=== PATIENT | female | born 1980 ===

== ENCOUNTER 2016-09-01 21:04 | Inpatient (IN) | payer MEDICAID ==
[2016-09-01 21:12] VITALS: BMI 44.9
[2016-09-01] MEDS ORDERED: Sodium Chloride 0.9% 1,000 ML IV STA (21:22)
--- NOTE | 2016-09-01 21:26 | ED PDOC ---
Arrival/HPI - General Chief Complaint: Back Pain Time Seen by Provider: 09/01/16 21:15 Historian: Patient - History of Present Illness Narrative History of Present Illness (Text): 09/01/16 21:20 A 36 year old female, whose past medical history includes cholelithiasis (1 small gallstone), presents to the emergency department complaining of back pain that developed about 5 hours ago. Patient states it is an aching pain that radiates from the right flank to the right upper abdominal quarant. Pain is not exacerbated by movement. Patient reports similar pain that developed about 3 weeks ago after eating greasy foods. At that time pain was relieved with 2 600 mg Tylenol. Patient notes some chills earlier today, but denies any hematuria, other urinary changes, fever, nausea, vomiting, numbness to the leg, vaginal bleeding, vaginal discharge, or any other complaints at this time. Last menstrual cycle was 3 weeks ago. PMD: [facility] Time/Duration: 4-6 hours Symptom Onset: Sudden Symptom Course: Unchanged Quality: Aching Activities at Onset: Rest Modifying Factors (Text): not exacerbated with movement Context: Home Associated Symptoms (Text): chills Past Medical History - Provider Review Nursing Documentation Reviewed: Yes - Infectious Disease Hx of Infectious Diseases: None - Tetanus Immunization Tetanus Immunization: Unknown - Past Medical History Past Medical History: No Previous - Pulmonary Hx Asthma: Yes - Gastrointestinal Hx Gall Bladder Disease: Yes (gallstones) - Genitourinary/Gynecological Other/Comment: Ovarian cyst - Psychiatric Hx Psychophysiologic Disorder: No Hx Anxiety: No Hx Bipolar Disorder: No Hx Depression: No Hx Emotional Abuse: No Hx Hallucinations: No Hx Panic Disorder: No Hx Post Traumatic Stress Disorder: No Hx Psychosis: No Hx Physical Abuse: No Hx Schizophrenia: No Hx Sexual Abuse: No Hx Substance Use: No - Past Surgical History Past Surgical History: No Previous - Anesthesia Hx Anesthesia: No Hx Anesthesia Reactions: No Hx Malignant Hyperthermia: No - Suicidal Assessment Feels Threatened In Home Enviroment: No Family/Social History - Physician Review Nursing Documentation Reviewed: Yes Family/Social History: No Known Family HX Smoking Status: Never Smoked Hx Alcohol Use: No Hx Substance Use: No Hx Substance Use Treatment: No Allergies/Home Meds Allergies/Adverse Reactions: Allergies No Known Allergies Allergy (Verified 06/29/16 08:38) Review of Systems - Physician Review All systems were reviewed & negative as marked: Yes - Review of Systems Constitutional: Other (chills). absent: Fevers Gastrointestinal: Abdominal Pain. absent: Nausea, Vomiting Genitourinary Female: absent: Dysuria, Frequency, Hematuria, Urine Output Changes, Vaginal Bleeding, Vaginal Discharge Musculoskeletal: Back Pain Physical Exam Vital Signs Reviewed: Yes Vital Signs Temp Pulse Resp BP Pulse Ox 09/01/16 22:50 98.9 F 82 16 98 09/01/16 21:06 98.8 F 85 18 122/68 94 L Temperature: Afebrile Blood Pressure: Normal Pulse: Regular Respiratory Rate: Normal Appearance: Positive for: Well-Appearing, Non-Toxic, Comfortable Pain Distress: None Mental Status: Positive for: Alert and Oriented X 3 - Systems Exam Head: Present: Atraumatic, Normocephalic Pupils: Present: PERRL Extroacular Muscles: Present: EOMI Conjunctiva: Present: Normal Mouth: Present: Moist Mucous Membranes Neck: Present: Normal Range of Motion Respiratory/Chest: Present: Clear to Auscultation, Good Air Exchange. No: Respiratory Distress, Accessory Muscle Use Cardiovascular: Present: Regular Rate and Rhythm, Normal S1, S2. No: Murmurs Abdomen: Present: Tenderness (right upper quadrant tenderness with palpation), Normal Bowel Sounds, Guarding, Other (positive dominguez's sign). No: Distention, Peritoneal Signs, Rebound Back: No: CVA Tenderness Upper Extremity: Present: Normal Inspection. No: Cyanosis, Edema Lower Extremity: Present: Normal Inspection. No: Edema Neurological: Present: GCS=15, CN II-XII Intact, Speech Normal Skin: Present: Warm, Dry, Normal Color. No: Rashes Psychiatric: Present: Alert, Oriented x 3, Normal Insight, Normal Concentration Medical Decision Making ED Course and Treatment: 09/01/16 21:39 Impression: 36 year old female with right flank pain radiating to the right upper quadrant. Differential Diagnosis included but are not limited to: cholecystitis vs. nephrolithiasis vs. gastritis vs. biliary colic Plan: -- US abdomen -- Labs -- Pepcid, Toradol, IV Fluids -- Reassess and disposition - Lab Interpretations I have reviewed the lab results: Yes - Medication Orders Current Medication Orders: Discontinued Medications Famotidine (Pepcid) 20 mg IVP STAT STA Stop: 09/01/16 21:23 Last Admin: 09/01/16 21:41 Dose: 20 MG IVP Administration Document 09/01/16 21:41 [email or web address] (Rec: 09/01/16 21:[id number]- [id number]) Charges for Administration # of IVP Administrations 1 Sodium Chloride (Sodium Chloride 0.9%) 1,000 mls @ 1,000 mls/hr IV .Q1H STA Stop: 09/01/16 22:21 Last Admin: 09/01/16 21:42 Dose: 1,000 MLS/HR eMAR Start Stop Document 09/01/16 21:42 [email or web address] (Rec: 09/01/16 21:[id number]- [id number]) Intravenous Solution Start Date 09/01/16 Start Time 21:42 End Date 09/01/16 Ketorolac Tromethamine (Toradol) 30 mg IVP STAT STA Stop: 09/01/16 21:23 Last Admin: 09/01/16 21:42 Dose: 30 MG IVP Administration Document 09/01/16 21:42 CAST (Rec: 09/01/16 21:42 [place] [id number]) Charges for Administration # of IVP Administrations 1 Morphine Sulfate (Morphine) 4 mg IVP STAT STA Stop: 09/01/16 23:00 Last Admin: 09/01/16 23:25 Dose: 4 MG MAR Pain Assessment Document 09/01/16 23:25 [email or web address] (Rec: 09/01/16 23:[id number]- [id number]) Pain Reassessment Is this a pain reassessment? No Sleep Is patient sleeping during reassessment? No Presence of Pain Presence of Pain Yes Pain Scale Used Pain Scale Used Numeric Location Pain Location Body Site Abdomen Description Description Constant Intensity of Pain at present 8 Pain Behavior Facial Grimacing Aggravating Factors Changing Position Alleviating Factors/Management Position Change Techniques Alleviating Factors Medication IVP Administration Document 09/01/16 23:25 [email or web address] (Rec: 09/01/16 23:[id number]- [id number]) Charges for Administration # of IVP Administrations 1 ED OBSERVATION Date of observation admission: 09/01/16 Time of observation admission: 21:20 - Observation admission statement Patient is being placed in observation because:: right flank and right upper quadrant pain - Goals of Observation Goals of observation are:: pain control and obtain series of abdominal examinations - Progress Note Progress Note: 09/01/16 23:28 Case discussed with the oral and maxillofacial surgery resident Dr. Dobbins who will come and see patient. I discussed the case with Dr. Covarrubias, Surgeon who states that she will admit her and evaluate. She will order any antibiotics if needed. Discussed case with Dr. Blankenship who will place under his service. - Scribe Statement The provider has reviewed the documentation as recorded by the Alfredo [facility] All medical record entries made by the Alfredo were at my direction and personally dictated by me. I have reviewed the chart and agree that the record accurately reflects my personal performance of the history, physical exam, medical decision making, and the department course for this patient. I have also personally directed, reviewed, and agree with the discharge instructions and disposition. Disposition/Present on Arrival - Present on Arrival Any Indicators Present on Arrival: No History of DVT/PE: No History of Uncontrolled Diabetes: No Urinary Catheter: No History of Decub. Ulcer: No History Surgical Site Infection Following: None - Disposition Have Diagnosis and Disposition been Completed?: Yes Diagnosis: Biliary colic Disposition: HOSPITALIZED Disposition Time: 23:30 Patient Plan: Observation Condition: FAIR
[2016-09-01 21:49] LABS: ADD MANUAL DIFF? NO
[2016-09-01 21:58] LABS: BASO # 0.03 K/mm3 (0.0-2.0); BASO % 0.2 % (0.0-3.0); EOS # 0.2 (0.0-0.7); EOS % 1.8 % (1.5-5.0); GRAN # 8.63 (1.4-6.5); HEMATOCRIT 34.9 % (36.0-48.0); LYMPH # 3.4 (1.2-3.4); MEAN CELL VOLUME 83.1 fL (80.0-105.0); MEAN CORPUSCULAR HEMOGLOBIN 27.1 pg (25.0-35.0); MEAN CORPUSCULAR HGB CONC 32.7 g/dl (31.0-37.0); MEAN PLATELET VOLUME 9.3 fl (7.0-11.0); MONO # 0.6 (0.1-0.6); PLATELET COUNT 368 10^3/uL (120.0-450.0); RED CELL DISTRIBUTION WIDTH 14.9 % (11.5-14.5); WHITE BLOOD COUNT 12.9 10^3/ul (4.5-11.0)
[2016-09-01 22:08] LABS: INR 0.94 (0.93-1.08); PARTIAL THROMBOPLASTIN TIME 27.6 Seconds (23.7-30.8)
[2016-09-01 22:19] LABS: ALB/GLOB RATIO 1.1 (1.1-1.8); ALKALINE PHOSPHATASE 77 U/L (38-133); ALT/SGPT 28 U/L (7-56); AST/SGOT 21 U/L (15-39); BILIRUBIN,TOTAL 0.4 mg/dL (0.2-1.3); BLOOD UREA NITROGEN 10 mg/dL (7-21); CALCIUM 8.9 mg/dL (8.4-10.5); CARBON DIOXIDE 23 mmol/L (21-33); CHLORIDE 103 mmol/L (98-107); GFR AFRICAN-AMERICAN > 60; GLUCOSE,RANDOM 99 mg/dL (70-110); LIPASE 99 U/L (23-300); POTASSIUM 3.7 mmol/L (3.6-5.0); SODIUM 136 mmol/L (132-148); TOTAL PROTEIN 7.8 g/dL (5.8-8.3)
[2016-09-01] MEDS ORDERED: Morphine 4 mg/ml ISec IVP STA (22:59)
--- NOTE | 2016-09-01 23:11 | US ---
EXAM: US Abdomen Complete CLINICAL HISTORY: 36 years old, female; Pain; Abdominal pain; Other: Ruq; Additional info: Ruq abd pain R/O cholecytsitits R/O kidney stone TECHNIQUE: Real-time ultrasound of the abdomen (complete) with image documentation. COMPARISON: US - ABDOMEN COMPLETE 12/13/2015 6:31:13 PM FINDINGS: Liver: Liver is enlarged measuring 19.2 CM craniocaudal. Liver demonstrates normal echogenicity. No focal liver lesions identified. Gallbladder: The gallbladder demonstrates a shadowing gallstone at the gallbladder neck measuring at least 2.4 CM which is nonmobile. No wall thickening or pericholecystic fluid. Sonographic Diaz's sign is negative. Common bile duct: Common bile duct is normal in caliber measuring 0.5 CM. No stones. No dilation. Pancreas: The pancreas is normal. Kidneys: The right kidney is normal. The left kidney is normal. No stones. No hydronephrosis. Spleen: The spleen is normal. Aorta: Unremarkable. No aneurysm. Inferior vena cava: Unremarkable. IMPRESSION: 1. Liver is enlarged measuring 19.2 CM craniocaudal. 2. The gallbladder demonstrates a shadowing gallstone at the gallbladder neck measuring at least 2.4 CM which is nonmobile. No wall thickening or pericholecystic fluid. Sonographic Diaz's sign is negative.
--- NOTE | 2016-09-02 00:09 | CP.PCM.CON ---
History of Present Illness - History of Present Illness History of Present Illness: Surgery Consult: Dr. Covarrubias Pt is a 36F with no significant PMHx who presents to [facility] for complaints of abdominal pain. Pt states she started having dull, RUQ abdominal pain this afternoon with radiation to the back. According to the pt, she has had similar episodes in the past and was told she has stones in her gallbladder. Pt states this is her 4th attack and she has been told to f/u with a surgeon to remove her GB but hasn't had a chance. She denies any associated symptoms with this episode. Denies N/V, fevers. Admits to chills. In the ER, pt had an US of the RUQ which shows GB with large stone impacted in the neck of the GB. No GB wall thickening or percholicystic fluid. Surgery consulted to evaluate. Currently, pt is resting comfortably in bed and states her pain has improved since getting morphine. Denies N/V, F/C, chest pain or SOB. PMHx: denies PSHx: denies SocialHx: former smoker, denies EtOH/drugs NKDA Review of Systems - Review of Systems All systems: reviewed and no additional remarkable complaints except (as per HPI ) Past Patient History - Infectious Disease Hx of Infectious Diseases: None - Tetanus Immunizations Tetanus Immunization: Unknown - Past Social History Smoking Status: Former Smoker - GASTROINTESTINAL Hx Gall Bladder Disease: Yes (gallstones) - GENITOURINARY/GYNECOLOGICAL Other/Comment: Ovarian cyst - PSYCHIATRIC Hx Psychophysiologic Disorder: No Hx Anxiety: No Hx Bipolar Disorder: No Hx Depression: No Hx Emotional Abuse: No Hx Hallucinations: No Hx Panic Symptoms: No Hx Post Traumatic Stress Disorder: No Hx Psychosis: No Hx Physical Abuse: No Hx Schizophrenia: No Hx Sexual Abuse: No Hx Substance Use: No - SURGICAL HISTORY Hx Surgeries: No - ANESTHESIA Hx Anesthesia: No Hx Anesthesia Reactions: No Hx Malignant Hyperthermia: No Meds Allergies/Adverse Reactions: Allergies Allergy/AdvReac Type Severity Reaction Status Date / Time No Known Allergies Allergy Verified 06/29/16 08:38 - Medications Medications: Current Medications Ciprofloxacin (Cipro 400mg/200ml Dsw) 200 mls @ 133.3 mls/hr IVPB Q12 KRISTINE PRN Reason: Protocol Stop: 09/03/16 01:31 Metronidazole (Flagyl) 100 mls @ 100 mls/hr IVPB Q8 KRISTINE PRN Reason: Protocol Sodium Chloride (Sodium Chloride 0.9%) 1,000 mls @ 125 mls/hr IV .Q8H KRISTINE Morphine Sulfate (Morphine) 2 mg IVP Q4H PRN PRN Reason: Pain, moderate (4-7) Ondansetron HCl (Zofran Inj) 4 mg IVP Q4H PRN PRN Reason: Nausea/Vomiting Physical Exam - Constitutional Appears: Well, No Acute Distress - Head Exam Head Exam: ATRAUMATIC, NORMOCEPHALIC - Eye Exam Eye Exam: Normal appearance - ENT Exam ENT Exam: Mucous Membranes Moist - Respiratory Exam Respiratory Exam: NORMAL BREATHING PATTERN - Cardiovascular Exam Cardiovascular Exam: RRR - GI/Abdominal Exam GI & Abdominal Exam: Soft. absent: Distended, Guarding, Rebound, Tenderness - Extremities Exam Extremities exam: Negative for: tenderness - Neurological Exam Neurological exam: Alert, Oriented x3 - Skin Skin Exam: Dry, Intact, Warm Results - Vital Signs Recent Vital Signs: Last Vital Signs Temp 98.9 F 09/01/16 22:50 Pulse 82 09/01/16 22:50 Resp 16 09/01/16 22:50 BP 122/68 09/01/16 21:06 Pulse Ox 98 09/01/16 22:50 - Labs Result Diagrams: 09/01/16 21:34 09/01/16 21:34 Labs: Laboratory Results - last 24 hr 09/01/16 21:34 WBC 12.9 H D RBC 4.20 Hgb 11.4 L Hct 34.9 L MCV 83.1 MCH 27.1 MCHC 32.7 RDW 14.9 H Plt Count 368 MPV 9.3 Gran % 67.0 Lymph % (Auto) 26.0 [place] % (Auto) 5.0 Eos % (Auto) 1.8 Baso % (Auto) 0.2 Gran # 8.63 H Lymph # 3.4 [place] # 0.6 Eos # 0.2 Baso # 0.03 PT 10.1 INR 0.94 APTT 27.6 Sodium 136 Potassium 3.7 Chloride 103 Carbon Dioxide 23 Anion Gap 14 BUN 10 Creatinine 0.7 Est GFR ( Amer) > 60 Est GFR (Non-Af Amer) > 60 Random Glucose 99 Calcium 8.9 Total Bilirubin 0.4 AST 21 ALT 28 Alkaline Phosphatase 77 Total Protein 7.8 Albumin 4.0 Globulin 3.8 Albumin/Globulin Ratio 1.1 Lipase 99 - Imaging and Cardiology US - abdomen Status: Image reviewed by me, Report reviewed by me Assessment & Plan - Assessment and Plan (Free Text) Assessment: 36F with biliary colic & symptomatic cholelithiasis Plan: - NPO - IVF, IV ABX, pain management - plan for lap hemant - d/w Dr. Satish Dobbins, PGY-2 Surgery
[2016-09-02] MEDS: metroNIDAZOLE IV 500 mg/100 ml 100 ML IVPB SCH ×4 (00:17→21:44)
[2016-09-02] MEDS: Sodium Chloride 0.9% 1,000 ML IV SCH ×4 (00:18→21:46)
--- NOTE | 2016-09-02 00:51 | CP.PCM.HP ---
<Magdalena Grey - Last Filed: 09/02/16 00:58> History of Present Illness - History of Present Illness History of Present Illness: 36 F with PMHx of asthma and ruptured ovarian cyst presents [place] [facility] with complaints of rt sided flank pain. Pt states that the pain began approx at 4pm and has remained constant. The pain radiates from the rt flank toward the RUQ and is rated at a 9/10 at its worst and is described as sharp in nature. Pt was moving boxes when she felt the pain, took tylenol with minimal relief and decided to come to the ED. Pt has had similar episodes in the past, a total of 4 times, however it is progressively worsening. Pt admitted to rt flank pain, ruq abdominal pain, chills and nausea. Pt denied fever, sob, lightheadedness, chest pains, palpitations, v/d/c/, hematuria, or any urinary symptoms. PMHx: rutpured ovarian cyst, asthma PSHx: Denies SHx: Denies tobacco, etoh, or illicit drug use. Lives in [place] with family, LMP: 3 weeks ago - heavy with clots FamHx: Mom:HTN Meds: OCP Allergies: NKDA PMD: [facility] Present on Admission - Present on Admission Any Indicators Present on Admission: No History of DVT/PE: No History of Uncontrolled Diabetes: No Urinary Catheter: No Decubitus Ulcer Present: No Review of Systems - Review of Systems Review of Systems: as per HPI otherwise negative Past Patient History - Infectious Disease Hx of Infectious Diseases: None - Tetanus Immunizations Tetanus Immunization: Unknown - Past Social History Smoking Status: Former Smoker - PULMONARY Hx Asthma: Yes - GASTROINTESTINAL Hx Gall Bladder Disease: Yes (gallstones) - GENITOURINARY/GYNECOLOGICAL Other/Comment: Ovarian cyst - PSYCHIATRIC Hx Psychophysiologic Disorder: No Hx Anxiety: No Hx Bipolar Disorder: No Hx Depression: No Hx Emotional Abuse: No Hx Hallucinations: No Hx Panic Symptoms: No Hx Post Traumatic Stress Disorder: No Hx Psychosis: No Hx Physical Abuse: No Hx Schizophrenia: No Hx Sexual Abuse: No Hx Substance Use: No - SURGICAL HISTORY Hx Surgeries: No - ANESTHESIA Hx Anesthesia: No Hx Anesthesia Reactions: No Hx Malignant Hyperthermia: No Meds Allergies/Adverse Reactions: Allergies Allergy/AdvReac Type Severity Reaction Status Date / Time No Known Allergies Allergy Verified 06/29/16 08:38 Physical Exam - Constitutional Appears: Well, Non-toxic, No Acute Distress - Head Exam Head Exam: ATRAUMATIC, NORMAL INSPECTION, NORMOCEPHALIC - Eye Exam Eye Exam: EOMI, Normal appearance, PERRL Pupil Exam: NORMAL ACCOMODATION, PERRL - ENT Exam ENT Exam: Mucous Membranes Moist, Normal Exam - Neck Exam Neck exam: Positive for: Full Rom, Normal Inspection - Respiratory Exam Respiratory Exam: Clear to Auscultation Bilateral, NORMAL BREATHING PATTERN - Cardiovascular Exam Cardiovascular Exam: REGULAR RHYTHM, +S1, +S2 - GI/Abdominal Exam GI & Abdominal Exam: Normal Bowel Sounds, Soft, Tenderness (RUQ) - Extremities Exam Extremities exam: Positive for: normal inspection - Back Exam Back exam: CVA tenderness (R) - Neurological Exam Neurological exam: Alert, CN II-XII Intact, Normal Gait, Oriented x3, Reflexes Normal - Psychiatric Exam Psychiatric exam: Normal Affect, Normal Mood - Skin Skin Exam: Dry, Intact, Normal Color, Warm Results - Vital Signs Recent Vital Signs: Last Vital Signs Temp 98.9 F 09/01/16 22:50 Pulse 82 09/01/16 22:50 Resp 16 09/02/16 00:18 BP 122/68 09/01/16 21:06 Pulse Ox 98 09/02/16 00:18 - Labs Result Diagrams: 09/01/16 21:34 09/01/16 21:34 Labs: Laboratory Results - last 24 hr 09/01/16 21:34 WBC 12.9 H D RBC 4.20 Hgb 11.4 L Hct 34.9 L MCV 83.1 MCH 27.1 MCHC 32.7 RDW 14.9 H Plt Count 368 MPV 9.3 Gran % 67.0 Lymph % (Auto) 26.0 [place] % (Auto) 5.0 Eos % (Auto) 1.8 Baso % (Auto) 0.2 Gran # 8.63 H Lymph # 3.4 [place] # 0.6 Eos # 0.2 Baso # 0.03 PT 10.1 INR 0.94 APTT 27.6 Sodium 136 Potassium 3.7 Chloride 103 Carbon Dioxide 23 Anion Gap 14 BUN 10 Creatinine 0.7 Est GFR ( Amer) > 60 Est GFR (Non-Af Amer) > 60 Random Glucose 99 Calcium 8.9 Total Bilirubin 0.4 AST 21 ALT 28 Alkaline Phosphatase 77 Total Protein 7.8 Albumin 4.0 Globulin 3.8 Albumin/Globulin Ratio 1.1 Lipase 99 Assessment & Plan - Assessment and Plan (Free Text) Assessment: 36 obese F with no significant PMHx presenting with complaints of biliary colic x 4 episodes was previously told to f/u with surgeon to have GB removed. Biliary colic - Abd US demonstrated 2.4 cm gallstone in neck of GB with no gallbladder wall thickening or pericholecystic fluid - LFTs wnl - Surgery consulted, Dr. Covarrubias - Possible Lap cholecystectomy tomorrow - NPO - IVF: NS @125ml/hr - Cipro Flagyl - Morphine 2mg q4 - Zofran Leukocytosis - WBC 12.9 - afebrile - f/u CBC - Abx: Cipro/flagyl - IVF: NS @ 125ml/hr Anemia - Hgb 11.4 - fu CBC - asymptomatic GI ppx DVT ppx Seen, reviewed and discussed with attending <Pattie HUNG,Gualberto - Last Filed: 09/07/16 09:34> Results - Vital Signs Recent Vital Signs: Last Vital Signs Temp 97.7 F 09/04/16 08:00 Pulse 72 09/04/16 08:00 Resp 18 09/04/16 08:00 BP 103/54 L 09/04/16 08:00 Pulse Ox 95 09/04/16 08:00 - Labs Result Diagrams: 09/04/16 08:15 09/04/16 08:15 Attending/Attestation - Attestation I have personally seen and examined this patient.: Yes I have fully participated in the care of the patient.: Yes I have reviewed all pertinent clinical information: Yes
[2016-09-02] MEDS: Ciprofloxacin 400mg/200ml D5W 200 ML IVPB SCH ×2 (01:56→22:01)
[2016-09-02] MEDS: Morphine 2 mg/ml ISec IVP PRN ×3 (05:21→13:49)
[2016-09-02 08:10] LABS: HEMATOCRIT 32.4 % (36.0-48.0); MEAN CELL VOLUME 82.9 fL (80.0-105.0); MEAN CORPUSCULAR HEMOGLOBIN 26.3 pg (25.0-35.0); MEAN CORPUSCULAR HGB CONC 31.8 g/dl (31.0-37.0); MEAN PLATELET VOLUME 9.1 fl (7.0-11.0); RED CELL DISTRIBUTION WIDTH 15.1 % (11.5-14.5); WHITE BLOOD COUNT 7.7 10^3/ul (4.5-11.0)
[2016-09-02] MEDS ORDERED: cefTRIAXone 1 gm 100 ML IVPB SCH (10:00)
[2016-09-02 17:22] LABS: URINE BILIRUBIN NEGATIVE (NEGATIVE); URINE BLOOD NEGATIVE (NEGATIVE); URINE GLUCOSE (UA) NEGATIVE (NEGATIVE); URINE KETONE TRACE mg/dL (NEGATIVE); URINE LEUKOCYTE ESTERASE NEGATIVE Leu/uL (NEGATIVE); URINE PROTEIN NEGATIVE mg/dL (<30 mg/dL); URINE UROBILINOGEN 0.2 E.U./dL (<1 E.U./dL)
[2016-09-02 17:24] LABS: URINE APPEARANCE CLEAR (CLEAR); URINE COLOR YELLOW (YELLOW)
[2016-09-02] MEDS ORDERED: Succinylcholine 200 mg/10 ml Inj IV ONE (18:28)
[2016-09-02] MEDS ORDERED: Rocuronium 10 mg/ml (5 ml) ONE (18:28)
[2016-09-02] MEDS ORDERED: Lidocaine 1% Inj (20ml) ONE (18:28)
[2016-09-02] MEDS ORDERED: Propofol 10 mg/ml Inj (20 ML) ONE (18:28)
[2016-09-02] MEDS ORDERED: Midazolam 2 MG/2 ML VIAL ONE (18:28)
[2016-09-02] MEDS ORDERED: Desflurane Inhalation Anesthetic Liq (240 ml) ONE (18:42)
[2016-09-02] MEDS ORDERED: Neostigmine Methylsulfate 3mg/3ml Syringe IV ONE (19:03)
[2016-09-02] MEDS ORDERED: HYDROmorphone 0.5 mg/0.5 ml ISec IVP PRN (19:49)
--- NOTE | 2016-09-02 19:50 | PCM.SURG1 ---
Surgeon's Initial Post Op Note - Surgeon's Notes Surgeon: Satish Field Scout: Sandhya Pre-Operative Diagnosis: Biliary colic Operative Findings: gallstone Post-Operative Diagnosis: Biliary colic Operation Performed: Laparoscopic Cholecystectomy Specimen/Specimens Removed: Gallbladder Estimated Blood Loss: EBL {In ML}: 10 Date of Surgery/Procedure: 09/02/16 Time of Surgery/Procedure: 19:00
[2016-09-02] MEDS ORDERED: Lactated Ringer's 1,000 ML IV SCH (20:00)
[2016-09-02] MEDS ORDERED: HYDROmorphone 0.5 mg/0.5 ml ISec ONE ×2 (20:06→20:26)
--- NOTE | 2016-09-02 20:18 | OP ---
PROCEDURE DATE: 09/02/2016 SURGEON: Dr. Covarrubias. FUEL CELL BATTERY TECHNICIAN: Dr. Arthur. ANESTHESIA: General, Dr. Meyers. PREOPERATIVE DIAGNOSIS: Cholelithiasis. POSTOPERATIVE DIAGNOSIS: Cholelithiasis. PROCEDURE: Laparoscopic cholecystectomy. DESCRIPTION OF OPERATION: With the patient in the supine position under adequate general anesthesia, the abdomen was prepped and draped in the usual sterile manner. Veress needle puncture was performe d at the umbilicus with insufflation to 15 cm water pressure of CO2 and a 10 mm laparoscopic trocar w as inserted via an infraumbilical incision. Under direct vision, additional trocars were inserted in the epigastrium and right costal margin. The gallbladder was visualized. It was not acutely inflam ed. The fundus was grasped and elevated. The infundibulum was grasped just above a stone and retrac nikko laterally. Adhesions were cleared allowing visualization of the cystic duct. The cystic duct wa s cleared down toward the junction with the common bile duct and viewed anteriorly and posteriorly. The cystic duct was then triply clipped and divided. Anterior and posterior branches of the cystic a rtery were identified, each was triply clipped and divided. The gallbladder was dissected free of th e liver bed using electrocautery. There was mild edema of the liver bed consistent with recent infla mmation. The gallbladder was placed in a specimen retrieval bag and removed via the umbilical port s ite. The right upper quadrant was irrigated and suctioned. Pneumoperitoneum was released and the tr ocars were removed. The umbilical port site was closed with a [id number] fascial suture of 0 Vi cryl. All incisions were closed with 4-0 Monocryl subcuticular sutures and Steri-Strips. Dry steril e dressings were applied. The patient tolerated the procedure well and transferred to recovery room in stable condition. Estimated blood loss for the procedure was 10 mL. Fausto Covarrubias MD cc: 58 TT: 09/02/2016 20:17:48 [email or web address]
[2016-09-03] MEDS: Morphine 2 mg/ml ISec IVP PRN ×2 (01:07→05:25)
[2016-09-03] MEDS: metroNIDAZOLE IV 500 mg/100 ml 100 ML IVPB SCH (05:20)
[2016-09-03 08:02] LABS: ALKALINE PHOSPHATASE 67 U/L (38-133); ALT/SGPT 50 U/L (7-56); AST/SGOT 46 U/L (15-39); BILIRUBIN,TOTAL 0.6 mg/dL (0.2-1.3); CALCIUM 8.3 mg/dL (8.4-10.5); CARBON DIOXIDE 26 mmol/L (21-33); CHLORIDE 103 mmol/L (98-107); GFR AFRICAN-AMERICAN > 60; GLUCOSE,RANDOM 91 mg/dL (70-110); SODIUM 137 mmol/L (132-148); TOTAL PROTEIN 7.2 g/dL (5.8-8.3)
[2016-09-03 08:18] LABS: BLOOD UREA NITROGEN 5 mg/dL (7-21)
[2016-09-03] MEDS ORDERED: Morphine 4 mg/ml ISec IVP PRN (09:27)
[2016-09-03] MEDS: Sodium Chloride 0.9% 1,000 ML IV SCH (09:48)
--- NOTE | 2016-09-03 13:15 | CP.PCM.PN ---
<Shamika Figueroa - Last Filed: 09/03/16 16:31> Subjective - Date & Time of Evaluation Date of Evaluation: 09/03/16 Time of Evaluation: 11:00 - Subjective Subjective: Hospitalist progress note for Dr. Savana Goodman Patient seen and examined at bedside. Patient had a lap cholecystectomy yesterday and complains of RUQ pain, which she describes as a 7/10 in severity, headache, right sided mid-back pain and sore throat. Denies fever, chills, N/V/D /C, and flatus. Is tolerating regular diet. States that she would like to stay for another day until her pain is improved. Objective - Vital Signs/Intake and Output Vital Signs (last 24 hours): Temp Pulse Resp BP Pulse Ox 98 F 87 18 113/73 95 09/03/16 08:51 09/03/16 08:51 09/03/16 08:51 09/03/16 08:51 09/03/16 08:51 Intake and Output: 09/03/16 09/03/16 06:59 18:59 Intake Total 75 120 Balance 75 120 - Medications Medications: Current Medications Ondansetron HCl (Zofran Inj) 4 mg IVP Q4H PRN PRN Reason: Nausea/Vomiting Last Admin: 09/02/16 23:17 Dose: 4 mg Oxycodone/Acetaminophen (Percocet 5/325 Mg Tab) 2 tab PO Q4H PRN PRN Reason: Pain, moderate (4-7) Stop: 09/06/16 12:43 Pantoprazole Sodium (Protonix Inj) 40 mg IVP DAILY KRISTINE Last Admin: 09/03/16 09:44 Dose: 40 mg - Labs Labs: 09/03/16 07:30 PT 10.1 Seconds (9.9-11.8) 09/01/16 21:34 INR 0.94 (0.93-1.08) 09/01/16 21:34 APTT 27.6 Seconds (23.7-30.8) 09/01/16 21:34 - Constitutional Appears: Well, Non-toxic - Head Exam Head Exam: ATRAUMATIC, NORMOCEPHALIC - ENT Exam ENT Exam: Mucous Membranes Moist - Respiratory Exam Respiratory Exam: Clear to Ausculation Bilateral, NORMAL BREATHING PATTERN. absent: Accessory Muscle Use, Respiratory Distress - Cardiovascular Exam Cardiovascular Exam: REGULAR RHYTHM, +S1, +S2 - GI/Abdominal Exam GI & Abdominal Exam: Soft, Tenderness, Normal Bowel Sounds. absent: Distended Additional comments: RUQ tenderness, three surgical incisions, well-appoximated with derma-gordon. No signs of erythema or active bleeding. - Extremities Exam Extremities Exam: Pedal Edema. absent: Calf Tenderness, Tenderness - Neurological Exam Neurological Exam: Alert, Awake, Oriented x3 - Psychiatric Exam Psychiatric exam: Normal Affect, Normal Mood - Skin Skin Exam: Dry, Normal Color, Warm Assessment and Plan - Assessment and Plan (Free Text) Assessment: 36 obese F with no significant PMHx presenting with complaints of biliary colic x 4 episodes was previously told to f/u with surgeon to have GB removed. Biliary colic - Abd US demonstrated 2.4 cm gallstone in neck of GB with no gallbladder wall thickening or pericholecystic fluid - S/P lap hemant yesterday by Dr. Covarrubias - AST mildly elevated - Continued severe pain, no nausea, no vomiting Plan - Surgery consulted, Dr. Covarrubias--appreciate recs - HHD - D/C fluids - D/C Cipro Flagyl - Increase morphine 4mg IV Q4 - Zofran - Abdominal binder - Incentive spirometer Leukocytosis - Resolved today - afebrile - f/u CBC - D/C cipro, flagyl Anemia - Hgb 11.4-->10.2 - Continue to trend - asymptomatic GI ppx DVT ppx--SCD Dispo: Continue admit on med surgery floor overnight, possible discharge tomorrow Seen, reviewed and discussed with Dr. Savana Figueroa, PGY1 <Savana Goodman B - Last Filed: 09/03/16 18:01> Objective - Vital Signs/Intake and Output Vital Signs (last 24 hours): Temp Pulse Resp BP Pulse Ox 97.6 F 79 20 125/69 98 09/03/16 16:00 09/03/16 16:00 09/03/16 16:00 09/03/16 16:00 09/03/16 16:00 Intake and Output: 09/03/16 09/03/16 06:59 18:59 Intake Total 75 600 Balance 75 600 - Medications Medications: Current Medications Ondansetron HCl (Zofran Inj) 4 mg IVP Q4H PRN PRN Reason: Nausea/Vomiting Last Admin: 09/02/16 23:17 Dose: 4 mg Oxycodone/Acetaminophen (Percocet 5/325 Mg Tab) 2 tab PO Q4H PRN PRN Reason: Pain, moderate (4-7) Stop: 09/06/16 12:43 Last Admin: 09/03/16 14:01 Dose: 2 tab Pantoprazole Sodium (Protonix Inj) 40 mg IVP DAILY KRISTINE Last Admin: 09/03/16 09:44 Dose: 40 mg - Labs Labs: 09/03/16 07:30 PT 10.1 Seconds (9.9-11.8) 09/01/16 21:34 INR 0.94 (0.93-1.08) 09/01/16 21:34 APTT 27.6 Seconds (23.7-30.8) 09/01/16 21:34 Attending/Attestation - Attestation I have personally seen and examined this patient.: Yes I have fully participated in the care of the patient.: Yes I have reviewed all pertinent clinical information, including history, physical exam and plan: Yes Notes (Text): I have seen and examined patient at bedside. Agree with the above note with the following additions/ exceptions: This is 36 year old female with history of obesity and biliary colic who presented with abdominal pain and found to have acute cholecystitis now s/p laparoscopic cholecystectomy. Patient is complaining of lot of abdominal pain however denies nausea, vomiting or any other complaints. She claims that whenever she moves, laugh or tries to sit up, pain becomes severe. She is refusing to go home today and wants pain to improve before she leaves the hospital. Will hold discharge today. Discussed with surgery team. Encourage to be OOB to chair and advised to use incentive spirometer. Upon discharge patient will follow up with Dr Covarrubias and pmd of choice. Dr Savana Goodman
[2016-09-03] MEDS: Oxycodone/Acetaminophen 5/325 mg Tab PO PRN ×2 (14:01→19:46)
--- NOTE | 2016-09-03 14:44 | CP.PCM.PN ---
Subjective - Date & Time of Evaluation Date of Evaluation: 09/03/16 Time of Evaluation: 14:40 - Subjective Subjective: SURGERY NOTE FOR DR. GUARDADO 36F seen and examined at bedside. Patient states she has abdominal pain which is normal after operation. Patient denies nausea, vomiting, and she is tolerating diet. Denies fevers, chills. Objective - Vital Signs/Intake and Output Vital Signs (last 24 hours): Temp Pulse Resp BP Pulse Ox 98 F 87 18 113/73 95 09/03/16 08:51 09/03/16 08:51 09/03/16 08:51 09/03/16 08:51 09/03/16 08:51 Intake and Output: 09/03/16 09/03/16 06:59 18:59 Intake Total 75 600 Balance 75 600 - Medications Medications: Current Medications Ondansetron HCl (Zofran Inj) 4 mg IVP Q4H PRN PRN Reason: Nausea/Vomiting Last Admin: 09/02/16 23:17 Dose: 4 mg Oxycodone/Acetaminophen (Percocet 5/325 Mg Tab) 2 tab PO Q4H PRN PRN Reason: Pain, moderate (4-7) Stop: 09/06/16 12:43 Last Admin: 09/03/16 14:01 Dose: 2 tab Pantoprazole Sodium (Protonix Inj) 40 mg IVP DAILY KRISTINE Last Admin: 09/03/16 09:44 Dose: 40 mg - Labs Labs: 09/03/16 07:30 PT 10.1 Seconds (9.9-11.8) 09/01/16 21:34 INR 0.94 (0.93-1.08) 09/01/16 21:34 APTT 27.6 Seconds (23.7-30.8) 09/01/16 21:34 - Constitutional Appears: Non-toxic, No Acute Distress - Head Exam Head Exam: ATRAUMATIC - Respiratory Exam Respiratory Exam: Clear to Ausculation Bilateral, NORMAL BREATHING PATTERN - Cardiovascular Exam Cardiovascular Exam: REGULAR RHYTHM, +S1, +S2 - GI/Abdominal Exam GI & Abdominal Exam: Soft, Tenderness (appropriate). absent: Distended, Firm, Guarding, Rigid, Rebound Additional comments: incision clean dry intact - Neurological Exam Neurological Exam: Alert, Awake - Skin Skin Exam: Dry, Intact, Normal Color, Warm Assessment and Plan - Assessment and Plan (Free Text) Assessment: 36F s/p lap cholecystectomy POD#1 Plan: - Pain management - out of bed, IS, SCD - patient is clear for DC Discussed with Dr. Satish Arthur, PGY1
[2016-09-04] MEDS: Oxycodone/Acetaminophen 5/325 mg Tab PO PRN ×3 (03:03→11:12)
[2016-09-04] MEDS ORDERED: Pantoprazole 40 mg EC Tab PO SCH (07:30)
[2016-09-04] MEDS ORDERED: Benzocaine/Menthol (Cepacol) Lozenge MT PRN (07:59)
[2016-09-04 08:37] LABS: ADD MANUAL DIFF? NO
[2016-09-04 08:39] LABS: BASO # 0.01 K/mm3 (0.0-2.0); BASO % 0.1 % (0.0-3.0); EOS # 0.2 (0.0-0.7); EOS % 2.5 % (1.5-5.0); GRAN # 4.79 (1.4-6.5); GRAN % 57.8 % (50.0-68.0); HEMATOCRIT 33.3 % (36.0-48.0); LYMPH # 2.8 (1.2-3.4); LYMPH % 33.3 % (22.0-35.0); MEAN CELL VOLUME 83.5 fL (80.0-105.0); MEAN CORPUSCULAR HEMOGLOBIN 26.3 pg (25.0-35.0); MEAN CORPUSCULAR HGB CONC 31.5 g/dl (31.0-37.0); MONO # 0.5 (0.1-0.6); MONO % 6.3 % (1.0-6.0); PLATELET COUNT 345 10^3/uL (120.0-450.0); RED CELL DISTRIBUTION WIDTH 14.7 % (11.5-14.5); WHITE BLOOD COUNT 8.3 10^3/ul (4.5-11.0)
[2016-09-04 08:48] VITALS: BP 103/54; PULSE 72; RESP 18; TEMP 97.7; O2SAT 95
[2016-09-04 08:51] LABS: BLOOD UREA NITROGEN 9 mg/dL (7-21); CHLORIDE 101 mmol/L (98-107); GFR AFRICAN-AMERICAN > 60; GLUCOSE,RANDOM 90 mg/dL (70-110); POTASSIUM 4.1 mmol/L (3.6-5.0); SODIUM 136 mmol/L (132-148)
[2016-09-04 08:52] LABS: ALKALINE PHOSPHATASE 67 U/L (38-133); ALT/SGPT 48 U/L (7-56); AST/SGOT 37 U/L (15-39); BILIRUBIN,TOTAL 0.5 mg/dL (0.2-1.3); CALCIUM 8.5 mg/dL (8.4-10.5); CARBON DIOXIDE 29 mmol/L (21-33); TOTAL PROTEIN 7.3 g/dL (5.8-8.3)
[2016-09-04] MEDS ORDERED: POLYETHYLENE GLYCOL 3350 17 GM/Dose PACKET PO SCH (10:00)
--- NOTE | 2016-09-04 10:39 | CP.PCM.PN ---
Subjective - Date & Time of Evaluation Date of Evaluation: 09/04/16 Time of Evaluation: 10:36 - Subjective Subjective: General Surgery Progress Note - Service Patient evaluated at bedside. Abdominal pain is improved. Patient is tolerating a regular diet. Surgical site c/d/I. Patient remains afebrile. She as amenable for discharge today. Objective - Vital Signs/Intake and Output Vital Signs (last 24 hours): Temp Pulse Resp BP Pulse Ox 97.7 F 72 18 103/54 L 95 09/04/16 08:00 09/04/16 08:00 09/04/16 08:00 09/04/16 08:00 09/04/16 08:00 Intake and Output: 09/04/16 09/04/16 06:59 18:59 Intake Total 660 Balance 660 - Medications Medications: Current Medications Benzocaine/Menthol (Cepacol Sore Throat) 1 kelsi MT Q2H PRN PRN Reason: Sore Throat Docusate Sodium (Colace) 100 mg PO BID [facility] Last Admin: 09/04/16 09:25 Dose: 100 mg Ondansetron HCl (Zofran Inj) 4 mg IVP Q4H PRN PRN Reason: Nausea/Vomiting Last Admin: 09/02/16 23:17 Dose: 4 mg Oxycodone/Acetaminophen (Percocet 5/325 Mg Tab) 2 tab PO Q4H PRN PRN Reason: Pain, moderate (4-7) Stop: 09/06/16 12:43 Last Admin: 09/04/16 07:24 Dose: 2 tab Pantoprazole Sodium (Protonix Ec Tab) 40 mg PO ACB [facility] Last Admin: 09/04/16 09:26 Dose: 40 mg Polyethylene Glycol (Miralax) 17 gm PO DAILY [facility] Last Admin: 09/04/16 09:26 Dose: 17 gm - Labs Labs: 09/04/16 08:15 09/04/16 08:15 PT 10.1 Seconds (9.9-11.8) 09/01/16 21:34 INR 0.94 (0.93-1.08) 09/01/16 21:34 APTT 27.6 Seconds (23.7-30.8) 09/01/16 21:34 - Constitutional Appears: Well, Non-toxic - Head Exam Head Exam: ATRAUMATIC, NORMOCEPHALIC - Eye Exam Eye Exam: EOMI, Normal appearance - ENT Exam ENT Exam: Mucous Membranes Moist - Respiratory Exam Respiratory Exam: Clear to Ausculation Bilateral. absent: Rales, Rhonchi, Wheezes - Cardiovascular Exam Cardiovascular Exam: REGULAR RHYTHM - GI/Abdominal Exam GI & Abdominal Exam: Soft, Normal Bowel Sounds. absent: Distended, Firm, Tenderness Additional comments: surgical wounds c/d/i. No surrounding erythema or signs of infection. - Extremities Exam Extremities Exam: Full ROM, Normal Inspection. absent: Calf Tenderness, Pedal Edema - Neurological Exam Neurological Exam: Alert, Awake, Oriented x3 - Psychiatric Exam Psychiatric exam: Normal Affect, Normal Mood - Skin Skin Exam: Dry, Intact, Normal Color, Warm Assessment and Plan - Assessment and Plan (Free Text) Assessment: 36 y/o female s/p lap cholecystectomy POD #2. - patient is cleared for discharge to f/u with Dr. Covarrubias as an outpatient. - Discharge per primary team - continue Percocet 5/325mg PRN as outpatient for abdominal discomfort
--- NOTE | 2016-09-04 21:52 | CP.PCM.DIS ---
<Shamika Figueroa - Last Filed: 09/04/16 21:59> Provider - Provider Date of Admission: 09/02/16 17:47 Attending physician: Savana Goodman MD Primary care physician: Reji Maurer Time Spent in preparation of Discharge (in minutes): 40 Diagnosis - Discharge Diagnosis (1) Biliary colic Status: Acute (2) Pain, abdominal, nonspecific Status: Acute (3) Pelvic pain Status: Acute Hospital Course - Lab Results Lab Results: Most Recent Lab Values WBC 8.3 10^3/ul (4.5-11.0) 09/04/16 08:15 RBC 3.99 10^6/uL (3.5-6.1) 09/04/16 08:15 Hgb 10.5 gm/dL (12.0-16.0) L 09/04/16 08:15 Hct 33.3 % (36.0-48.0) L 09/04/16 08:15 MCV 83.5 fL (80.0-105.0) 09/04/16 08:15 MCH 26.3 pg (25.0-35.0) 09/04/16 08:15 MCHC 31.5 g/dl (31.0-37.0) 09/04/16 08:15 RDW 14.7 % (11.5-14.5) H 09/04/16 08:15 Plt Count 345 10^3/uL (120.0-450.0) 09/04/16 08:15 MPV 9.0 fl (7.0-11.0) 09/04/16 08:15 Gran % 57.8 % (50.0-68.0) 09/04/16 08:15 Lymph % (Auto) 33.3 % (22.0-35.0) 09/04/16 08:15 [place] % (Auto) 6.3 % (1.0-6.0) H 09/04/16 08:15 Eos % (Auto) 2.5 % (1.5-5.0) 09/04/16 08:15 Baso % (Auto) 0.1 % (0.0-3.0) 09/04/16 08:15 Gran # 4.79 (1.4-6.5) 09/04/16 08:15 Lymph # 2.8 (1.2-3.4) 09/04/16 08:15 [place] # 0.5 (0.1-0.6) 09/04/16 08:15 Eos # 0.2 (0.0-0.7) 09/04/16 08:15 Baso # 0.01 K/mm3 (0.0-2.0) 09/04/16 08:15 PT 10.1 Seconds (9.9-11.8) 09/01/16 21:34 INR 0.94 (0.93-1.08) 09/01/16 21:34 APTT 27.6 Seconds (23.7-30.8) 09/01/16 21:34 Sodium 136 mmol/L (132-148) 09/04/16 08:15 Potassium 4.1 mmol/L (3.6-5.0) 09/04/16 08:15 Chloride 101 mmol/L (98-107) 09/04/16 08:15 Carbon Dioxide 29 mmol/L (21-33) 09/04/16 08:15 Anion Gap 10 (10-20) 09/04/16 08:15 BUN 9 mg/dL (7-21) 09/04/16 08:15 Creatinine 0.7 mg/dL (0.5-1.4) 09/04/16 08:15 Est GFR ( Amer) > 60 09/04/16 08:15 Est GFR (Non-Af Amer) > 60 09/04/16 08:15 Random Glucose 90 mg/dL (70-110) 09/04/16 08:15 Calcium 8.5 mg/dL (8.4-10.5) 09/04/16 08:15 Total Bilirubin 0.5 mg/dL (0.2-1.3) 09/04/16 08:15 AST 37 U/L (15-39) 09/04/16 08:15 ALT 48 U/L (7-56) 09/04/16 08:15 Alkaline Phosphatase 67 U/L (38-133) 09/04/16 08:15 Total Protein 7.3 g/dL (5.8-8.3) 09/04/16 08:15 Albumin 3.7 g/dL (3.0-4.8) 09/04/16 08:15 Globulin 3.6 gm/dL 09/04/16 08:15 Albumin/Globulin Ratio 1.0 (1.1-1.8) L 09/04/16 08:15 Lipase 99 U/L (23-300) 09/01/16 21:34 Urine Color Yellow (YELLOW) 09/02/16 16:00 Urine Appearance Clear (CLEAR) 09/02/16 16:00 Urine pH 6.0 (4.7-8.0) 09/02/16 16:00 Ur Specific [place] 1.020 (1.005-1.035) 09/02/16 16:00 Urine Protein Negative mg/dL (<30 mg/dL) 09/02/16 16:00 Urine Glucose (UA) Negative mg/dL (NEGATIVE) 09/02/16 16:00 Urine Ketones Trace mg/dL (NEGATIVE) H 09/02/16 16:00 Urine Blood Negative (NEGATIVE) 09/02/16 16:00 Urine Nitrate Negative (NEGATIVE) 09/02/16 16:00 Urine Bilirubin Negative (NEGATIVE) 09/02/16 16:00 Urine Urobilinogen 0.2 E.U./dL (<1 E.U./dL) 09/02/16 16:00 Ur Leukocyte Esterase Negative Chi/uL (NEGATIVE) 09/02/16 16:00 Urine HCG, Qual Negative (NEGATIVE) 09/02/16 16:00 - Hospital Course Hospital Course: Patient is a 36F with PMH of ruptured ovarian cyst and asthma who [place] [facility] [place] 1 day right sided flank pain that radiates to the RUQ. Patient has had 4 episodes of similar pain but this episode had progressively worsened so she came to the ED. Abdominal US showed an enlarged liver, non-mobile gallstones in the gallstone neck, no pericholecystic fluid, no gallbladder wall thickening, no CBD dilation, and negative sonographic dominguez's sign. WBC 12.9, no elevated bilirubin or LFT'S. Patient was admitted to the med/surg floors and underwent a laparoscopic cholecystectomy with Dr. Covarrubias the next day without any complications. Patient recovered well over the next two days, and at time of discharge leukocytosis was resolved patient could tolerate low fat diet and pain was improving and tolerable with PO pain medication. Patient was cleared for discharge from a surgical standpoint with PO percocet and follow up with Dr. Covarrubias in her office and her PMD within a week was discussed with patient and patient's and they both expressed understanding and agreement. Patient was discharged to home. For full hospital course, see chart Discharge Exam - Head Exam Head Exam: ATRAUMATIC, NORMOCEPHALIC - Eye Exam Eye Exam: Normal appearance. absent: Conjunctival injection, Scleral icterus - ENT Exam ENT Exam: Mucous Membranes Moist, Normal Oropharynx - Neck Exam Neck exam: Normal Inspection - Respiratory Exam Respiratory Exam: Clear to PA & Lateral. absent: Accessory Muscle Use, NORMAL BREATHING PATTERN - Cardiovascular Exam Cardiovascular Exam: RRR, +S1, +S2. absent: Diastolic murmur, Systolic Murmur - GI/Abdominal Exam GI & Abdominal Exam: Soft, Tenderness (appropriate tenderness in the RUQ and RLQ ). absent: Distended Additional comments: Surgical incisions well approximated with dermabond, no surrounding erythema or active bleed/drainage - Extremities Exam Extremities exam: normal capillary refill, pedal edema (trace non-pitting pedal edema BL), pedal pulses present - Back Exam Back exam: NORMAL INSPECTION. absent: CVA tenderness (L), CVA tenderness (R) - Neurological Exam Neurological exam: Alert, Oriented x3 - Psychiatric Exam Psychiatric exam: Normal Affect, Normal Mood - Skin Skin Exam: Dry, Normal Color, Warm Discharge Plan - Discharge Medications Prescriptions: Docusate [Colace] 100 mg PO BID PRN 7 Days PRN Reason: Constipation oxyCODONE/Acetaminophen [Percocet 5/325 mg Tab] 1 tab PO Q6 PRN #12 tab PRN Reason: Pain, Moderate (4-7) - Follow Up Plan Condition: FAIR Disposition: HOME/ ROUTINE Instructions: Low Fat Diet (DC), Laparoscopic Cholecystectomy (DC) Additional Instructions: 1. Follow up with your primary physician within 1 week 2. Follow up with Dr. Covarrubias in 1-2 weeks 3. You may shower and resume light activity. Do not life greater than 15 pounds until you get further instructions from Dr. Covarrubias 4. Avoid fatty food for the first week. Re-introduce into your diet slowly as tolerated 5. Return to the ED or call Dr. Covarrubias's office for any return or worsening symptoms 6. Do not operate heavy machinery or drive while taking percocet Referrals: Fausto Covarrubias MD [Staff Provider] - Reji Maurer MD [Primary Care Provider] - <Savana Goodman - Last Filed: 09/05/16 11:36> Provider - Provider Date of Admission: 09/02/16 17:47 Attending physician: Savana Goodman MD Primary care physician: Reji Martinez [facility] [address] Course - Lab Results Lab Results: Most Recent Lab Values WBC 8.3 10^3/ul (4.5-11.0) 09/04/16 08:15 RBC 3.99 10^6/uL (3.5-6.1) 09/04/16 08:15 Hgb 10.5 gm/dL (12.0-16.0) L 09/04/16 08:15 Hct 33.3 % (36.0-48.0) L 09/04/16 08:15 MCV 83.5 fL (80.0-105.0) 09/04/16 08:15 MCH 26.3 pg (25.0-35.0) 09/04/16 08:15 MCHC 31.5 g/dl (31.0-37.0) 09/04/16 08:15 RDW 14.7 % (11.5-14.5) H 09/04/16 08:15 Plt Count 345 10^3/uL (120.0-450.0) 09/04/16 08:15 MPV 9.0 fl (7.0-11.0) 09/04/16 08:15 Gran % 57.8 % (50.0-68.0) 09/04/16 08:15 Lymph % (Auto) 33.3 % (22.0-35.0) 09/04/16 08:15 [place] % (Auto) 6.3 % (1.0-6.0) H 09/04/16 08:15 Eos % (Auto) 2.5 % (1.5-5.0) 09/04/16 08:15 Baso % (Auto) 0.1 % (0.0-3.0) 09/04/16 08:15 Gran # 4.79 (1.4-6.5) 09/04/16 08:15 Lymph # 2.8 (1.2-3.4) 09/04/16 08:15 [place] # 0.5 (0.1-0.6) 09/04/16 08:15 Eos # 0.2 (0.0-0.7) 09/04/16 08:15 Baso # 0.01 K/mm3 (0.0-2.0) 09/04/16 08:15 PT 10.1 Seconds (9.9-11.8) 09/01/16 21:34 INR 0.94 (0.93-1.08) 09/01/16 21:34 APTT 27.6 Seconds (23.7-30.8) 09/01/16 21:34 Sodium 136 mmol/L (132-148) 09/04/16 08:15 Potassium 4.1 mmol/L (3.6-5.0) 09/04/16 08:15 Chloride 101 mmol/L (98-107) 09/04/16 08:15 Carbon Dioxide 29 mmol/L (21-33) 09/04/16 08:15 Anion Gap 10 (10-20) 09/04/16 08:15 BUN 9 mg/dL (7-21) 09/04/16 08:15 Creatinine 0.7 mg/dL (0.5-1.4) 09/04/16 08:15 Est GFR ( Amer) > 60 09/04/16 08:15 Est GFR (Non-Af Amer) > 60 09/04/16 08:15 Random Glucose 90 mg/dL (70-110) 09/04/16 08:15 Calcium 8.5 mg/dL (8.4-10.5) 09/04/16 08:15 Total Bilirubin 0.5 mg/dL (0.2-1.3) 09/04/16 08:15 AST 37 U/L (15-39) 09/04/16 08:15 ALT 48 U/L (7-56) 09/04/16 08:15 Alkaline Phosphatase 67 U/L (38-133) 09/04/16 08:15 Total Protein 7.3 g/dL (5.8-8.3) 09/04/16 08:15 Albumin 3.7 g/dL (3.0-4.8) 09/04/16 08:15 Globulin 3.6 gm/dL 09/04/16 08:15 Albumin/Globulin Ratio 1.0 (1.1-1.8) L 09/04/16 08:15 Lipase 99 U/L (23-300) 09/01/16 21:34 Urine Color Yellow (YELLOW) 09/02/16 16:00 Urine Appearance Clear (CLEAR) 09/02/16 16:00 Urine pH 6.0 (4.7-8.0) 09/02/16 16:00 Ur Specific [place] 1.020 (1.005-1.035) 09/02/16 16:00 Urine Protein Negative mg/dL (<30 mg/dL) 09/02/16 16:00 Urine Glucose (UA) Negative mg/dL (NEGATIVE) 09/02/16 16:00 Urine Ketones Trace mg/dL (NEGATIVE) H 09/02/16 16:00 Urine Blood Negative (NEGATIVE) 09/02/16 16:00 Urine Nitrate Negative (NEGATIVE) 09/02/16 16:00 Urine Bilirubin Negative (NEGATIVE) 09/02/16 16:00 Urine Urobilinogen 0.2 E.U./dL (<1 E.U./dL) 09/02/16 16:00 Ur Leukocyte Esterase Negative Chi/uL (NEGATIVE) 09/02/16 16:00 Urine HCG, Qual Negative (NEGATIVE) 09/02/16 16:00 Attending/Attestation - Attestation I have personally seen and examined this patient.: Yes I have fully participated in the care of the patient.: Yes I have reviewed all pertinent clinical information, including history, physical exam and plan: Yes Notes (Text): I have seen and examined patient at bedside. Agree with the above note with the following additions/ exceptions: This is 36 year old female with history of obesity and biliary colic who presented with abdominal pain and found to have acute cholecystitis now s/p laparoscopic cholecystectomy. Today her abdominal pain has improved. Patient was able to get up and walk around. Denies any other complaints. Patient will follow up with Dr Covarrubias and [facility]. Dr Savana Goodman
== END 2016-09-04 14:51 | disposition home or self-care (01) | DRG 494 ==
LOC: ED 21:04 → EROBSV 21:20 → ERH 23:45 → 3RNO 09-02 00:24 → OBSVTOIN 09-02 17:47
PROVIDERS: ADMIT Hospitalist; ATTEND Hospitalist
PROC: 0FT44ZZ Resection of Gallbladder, Percutaneous Endoscopic Approach (ICD-10-PCS; principal; 2016-09-02 16:00)
DX: K80.00 Calculus of gallbladder with acute cholecystitis without obstruction (principal); D64.9 Anemia, unspecified; J45.909 Unspecified asthma, uncomplicated; N83.209 Unspecified ovarian cyst, unspecified side; E66.9 Obesity, unspecified; Z68.41 Body mass index [BMI] 40.0-44.9, adult

== ENCOUNTER 2016-11-26 09:55 | Emergency (ER) | payer MEDICAID ==
[2016-11-26 10:07] VITALS: BMI 45.3
[2016-11-26 10:10] VITALS: RESP 18; O2SAT 100
--- NOTE | 2016-11-26 10:36 | ED PDOC ---
Arrival/HPI - General Historian: Patient - History of Present Illness Time/Duration: 4-6 hours <Yaritza Sylvester - Last Filed: 11/26/16 12:52> <Tessa Nicholson - Last Filed: 11/26/16 14:59> - General Chief Complaint: Abdominal Pain Time Seen by Provider: 11/26/16 09:56 - History of Present Illness Narrative History of Present Illness (Text): 11/26/16 10:41 36 year old A2 female with past medical history of left sided ovarian cyst and asthma presents to [facility] [place] [place] ED with lower abdominal pain. The pain had a sudden onset which started at 6am this morning. Patient reports the pain has cramping quality similar to her previous related abdominal pain. Patient took over the counter Motrin which resolved her pain and it is not exacerbated with movement or palpation. Patient reports having a positive urine at home 1 month ago and her LMP was 10/11/16. Patient had a lap hemant in 08/2016 and she has been having loose BM since then. Patient denies having abnormal or soul smelling vaginal discharges. She further denies fever, chills, shortness of breath, chest pain, vomiting, or lower extremity pain. (Yaritza Sylvester) Past Medical History - Provider Review Nursing Documentation Reviewed: Yes - Infectious Disease Hx of Infectious Diseases: None - Tetanus Immunization Tetanus Immunization: Unknown - Past Medical History Past Medical History: No Previous - Cardiac Hx Cardiac Disorders: No - Pulmonary Hx Asthma: Yes - Neurological Hx Neurological Disorder: No - HEENT Hx HEENT Disorder: No - Renal Hx Renal Disorder: No - Endocrine/Metabolic Hx Endocrine Disorders: No - Hematological/Oncological Hx Blood Transfusions: No Hx Blood Transfusion Reaction: No - Integumentary Hx Dermatological Disorder: No - Musculoskeletal/Rheumatological Hx Musculoskeletal Disorders: No Hx Falls: No - Gastrointestinal Hx Gall Bladder Disease: Yes (gallstones) - Genitourinary/Gynecological Other/Comment: Ovarian cyst - Psychiatric Hx Psychophysiologic Disorder: No Hx Anxiety: No Hx Bipolar Disorder: No Hx Depression: No Hx Emotional Abuse: No Hx Hallucinations: No Hx Panic Disorder: No Hx Post Traumatic Stress Disorder: No Hx Psychosis: No Hx Physical Abuse: No Hx Schizophrenia: No Hx Sexual Abuse: No Hx Substance Use: No - Past Surgical History Past Surgical History: No Previous - Anesthesia Hx Anesthesia Reactions: No Hx Malignant Hyperthermia: No - Suicidal Assessment Feels Threatened In Home Enviroment: No <Yaritza Sylvester - Last Filed: 11/26/16 12:52> Family/Social History - Physician Review Nursing Documentation Reviewed: Yes Family/Social History: Hypertension Smoking Status: Never Smoked Hx Alcohol Use: No Hx Substance Use: No Hx Substance Use Treatment: No <Yaritza Sylvester - Last Filed: 11/26/16 12:52> Allergies/Home Meds <Yaritza Sylvester - Last Filed: 11/26/16 12:52> <Tessa Nicholson - Last Filed: 11/26/16 14:59> Allergies/Adverse Reactions: Allergies No Known Allergies Allergy (Verified 06/29/16 08:38) Review of Systems - Physician Review All systems were reviewed & negative as marked: Yes - Review of Systems Constitutional: Normal. absent: Fatigue, Fevers Eyes: Normal. absent: Vision Changes, Photophobia ENT: Normal. absent: Rhinorrhea Respiratory: Normal. absent: SOB, Cough Cardiovascular: Normal. absent: Chest Pain, Syncope Gastrointestinal: Abdominal Pain, Diarrhea (s/p lap hemant in 08/2016), Nausea. absent: Vomiting Genitourinary Female: Frequency. absent: Dysuria, Hematuria, Vaginal Bleeding Musculoskeletal: Normal. absent: Back Pain Skin: Normal. absent: Rash, Pruritis, Skin Lesions, Laceration Neurological: Normal. absent: Headache, Dizziness Endocrine: Normal Hemo/Lymphatic: Normal Psychiatric: Normal. absent: Anxiety, Depression <Yaritza Sylvester - Last Filed: 11/26/16 12:52> Physical Exam Vital Signs Reviewed: Yes Temperature: Afebrile Blood Pressure: Normal Pulse: Tachycardic Respiratory Rate: Normal Appearance: Positive for: Well-Appearing, Non-Toxic, Comfortable Pain Distress: Mild Mental Status: Positive for: Alert and Oriented X 3 - Systems Exam Head: Present: Atraumatic, Normocephalic Pupils: Present: PERRL Extroacular Muscles: Present: EOMI Conjunctiva: Present: Normal Mouth: Present: Moist Mucous Membranes Pharnyx: Present: Normal Respiratory/Chest: Present: Clear to Auscultation, Good Air Exchange. No: Respiratory Distress, Accessory Muscle Use, Wheezes Cardiovascular: Present: Regular Rate and Rhythm, Normal S1, S2. No: Murmurs Abdomen: Present: Normal Bowel Sounds. No: Tenderness, Guarding, McBurney's Point Tender, Hernias Upper Extremity: Present: Normal Inspection, Neurovascularly Intact. No: Cyanosis, Edema Lower Extremity: Present: Normal Inspection, Neurovascularly Intact. No: Edema Neurological: Present: GCS=15, CN II-XII Intact, Speech Normal Skin: Present: Warm, Dry, Normal Color. No: Rashes Psychiatric: Present: Alert, Oriented x 3, Normal Insight, Normal Concentration <Yaritza Sylvester - Last Filed: 11/26/16 12:52> Medical Decision Making <Yaritza Sylvester - Last Filed: 11/26/16 12:52> - Lab Interpretations I have reviewed the lab results: Yes <Tessa Nicholson - Last Filed: 11/26/16 14:59> ED Course and Treatment: 11/26/16 10:38 -UA -Beta HCG -Transvaginal U/S -CBC, CMP -Urine preg -Lipase -Tylenol DDx: Normal , ectopic , pancreatitis Prior visit: 09/01/16 was admitted for acute cholecystitis 11/26/16 10:40 Patient urine test positive 11/26/16 12:49 B-HCG 1555.20, UA negative for LE, WBC 0-2, vitals stable 11/26/16 12:50 Patient condition improved. Labs and u/s reviewed. Instructed patient to take Tylenol for pain as needed and vitamin daily. Follow up with patient's OBGYN outpatient. (Yaritza Sylvester) Patient seen and examined with resident. Came up with treatment and disposition plan with resident. The patient is a 36 year old A1 presents to the emergency department for evaluation of lower abdominal pain. She reports that this pain was similar to her prior "early " pain. Additional HPI details as noted by the resident. Physical examination revealed no acute findings. Patient urine is was positive for . Lab work, Urinalysis and Transvaginal ultrasound ordered. Patient given Tylenol for pain. U/s shows "probable early intrauterine gestational sac, out of range for determination of age" Follow up with transvaginal us and serial bhcg is advised Cervix is long and closed." Patient has no vaginal discharge or vaginal bleeding. Urinalysis is negative for leukocytes or nitrates and she has no dysuria. Abdomen soft NT/ND. cg 1550. Spoke to patient at length and she has OB follow-up on . She was notified of the importance of repeat ultrasound. 11/26/16 14:56 (Tessa Nicholson) - Lab Interpretations Lab Results: 11/26/16 11:15 11/26/16 11:15 Lab Results 11/26/16 12:20: Urine Color Yellow, Urine Appearance Turbid, Urine pH 6.0, Ur Specific [place] >= 1.030, Urine Protein Trace H, Urine Glucose (UA) Negative, Urine Ketones Negative, Urine Blood Negative, Urine Nitrate Negative, Urine Bilirubin Negative, Urine Urobilinogen 0.2, Ur Leukocyte Esterase Negative, Urine RBC Negative, Urine WBC 0 - 2, Ur Epithelial Cells 0 - 2, Amorphous Sediment Few, Urine Bacteria Large 11/26/16 11:15: Beta HCG, Quant 1555.20 H 11/26/16 11:15: Sodium 137, Potassium 4.0, Chloride 104, Carbon Dioxide 24, Anion Gap 13, BUN 9, Creatinine 0.6, Est GFR ( Amer) > 60, Est GFR (Non- Af Amer) > 60, Random Glucose 107, Calcium 8.9, Total Bilirubin 0.5, AST 44 H, ALT 34, Alkaline Phosphatase 69, Total Protein 7.6, Albumin 4.1, Globulin 3.5, Albumin/Globulin Ratio 1.2, Lipase 74 11/26/16 11:15: WBC 9.7, RBC 4.23, Hgb 11.2 L, Hct 34.7 L, MCV 82.0, MCH 26.5, MCHC 32.3, RDW 16.2 H, Plt Count 375, MPV 9.5, Gran % 68.3 H, Lymph % (Auto) 24.9, [place] % (Auto) 4.9, Eos % (Auto) 1.6, Baso % (Auto) 0.3, Gran # 6.62 H, Lymph # 2.4, [place] # 0.5, Eos # 0.2, Baso # 0.03 - RAD Interpretation Radiology Orders: 11/26/16 10:25 OB TRANSVAGINAL [US] Stat - Medication Orders Current Medication Orders: Discontinued Medications Acetaminophen (Tylenol 325mg Tab) 650 mg PO STAT STA Stop: 11/26/16 10:32 Last Admin: 11/26/16 11:06 Dose: 650 mg - PA / PARACHUTE SUPERVISOR / Resident Statement CHARLENE has reviewed & agrees with the documentation as recorded. CHARLENE has examined the patient and agrees with the treatment plan. <Yaritza Sylvester - Last Filed: 11/26/16 12:52> - PA / PARACHUTE SUPERVISOR / Resident Statement CHARLENE has reviewed & agrees with the documentation as recorded. CHARLENE has examined the patient and agrees with the treatment plan. - Scribe Statement The provider has reviewed the documentation as recorded by the Scribe <Tessa Nicholson - Last Filed: 11/26/16 14:59> - Scribe Statement William Mohan Provider Scribe Attestation: All medical record entries made by the Scribe were at my direction and personally dictated by me. I have reviewed the chart and agree that the record accurately reflects my personal performance of the history, physical exam, medical decision making, and the department course for this patient. I have also personally directed, reviewed, and agree with the discharge instructions and disposition. (Tessa Nicholson) Disposition/Present on Arrival - Present on Arrival Any Indicators Present on Arrival: No History of DVT/PE: No History of Uncontrolled Diabetes: No Urinary Catheter: No History of Decub. Ulcer: No History Surgical Site Infection Following: None - Disposition Have Diagnosis and Disposition been Completed?: Yes Disposition Time: 12:55 Patient Plan: Discharge <Yaritza Sylvester - Last Filed: 11/26/16 12:52> <Tessa Nicholson - Last Filed: 11/26/16 14:59> - Disposition Diagnosis: Disposition: HOME/ ROUTINE Condition: FAIR Discharge Instructions (ExitCare): (ED) Additional Instructions: Take vitamins daily. Follow-up with OB on as previously scheduled. Return to emergency department if condition worsens. Your bhcg today was 1550. You need repeat ultrasound to confirm viability as this ultrasound showed probably early intrauterine but no pole. Return to emergency department if condition worsens. Prescriptions: 95/Iron Fum/Folic/Dha [ + Dha Combo Pack] 1 tab PO DAILY #1 combo..pkg
[2016-11-26 11:33] LABS: BASO # 0.03 K/mm3 (0.0-2.0); BASO % 0.3 % (0.0-3.0); EOS # 0.2 (0.0-0.7); EOS % 1.6 % (1.5-5.0); GRAN # 6.62 (1.4-6.5); GRAN % 68.3 % (50.0-68.0); HEMOGLOBIN 11.2 gm/dL (12.0-16.0); LYMPH # 2.4 (1.2-3.4); LYMPH % 24.9 % (22.0-35.0); MEAN CORPUSCULAR HEMOGLOBIN 26.5 pg (25.0-35.0); MEAN CORPUSCULAR HGB CONC 32.3 g/dl (31.0-37.0); MEAN PLATELET VOLUME 9.5 fl (7.0-11.0); MONO # 0.5 (0.1-0.6); MONO % 4.9 % (1.0-6.0); PLATELET COUNT 375 10^3/uL (120.0-450.0); RBC 4.23 10^6/uL (3.5-6.1); RED CELL DISTRIBUTION WIDTH 16.2 % (11.5-14.5); WHITE BLOOD COUNT 9.7 10^3/ul (4.5-11.0)
[2016-11-26 11:46] LABS: ALB/GLOB RATIO 1.2 (1.1-1.8); ALBUMIN 4.1 g/dL (3.0-4.8); ALT/SGPT 34 U/L (7-56); AST/SGOT 44 U/L (15-39); BLOOD UREA NITROGEN 9 mg/dL (7-21); CALCIUM 8.9 mg/dL (8.4-10.5); GFR AFRICAN-AMERICAN > 60; GFR NON-AFRICAN AMERICAN > 60; LIPASE 74 U/L (23-300)
[2016-11-26 12:25] LABS: URINE APPEARANCE TURBID (CLEAR); URINE BILIRUBIN NEGATIVE (NEGATIVE); URINE BLOOD NEGATIVE (NEGATIVE); URINE COLOR YELLOW (YELLOW); URINE GLUCOSE (UA) NEGATIVE (NEGATIVE); URINE LEUKOCYTE ESTERASE NEGATIVE Leu/uL (NEGATIVE); URINE NITRATE NEGATIVE (NEGATIVE); URINE PROTEIN TRACE mg/dL (<30 mg/dL); URINE UROBILINOGEN 0.2 E.U./dL (<1 E.U./dL)
[2016-11-26 12:35] LABS: URINE BACTERIA LARGE (NEG); URINE EPITHELIAL CELLS 0 - 2 /hpf (0-5); URINE RBC NEGATIVE /hpf (0-2); URINE WBC 0 - 2 /hpf (0-6)
[2016-11-26 12:36] LABS: URINE AMORPHOUS SEDIMENT FEW
--- NOTE | 2016-11-26 12:44 | US ---
PROCEDURE: OB Pelvic Ultrasound HISTORY: pelvic pain COMPARISON: None available. FINDINGS: UTERUS: The examination demonstrates a small intrauterine cystic structure, possibly a gestational sac. The diameter is 4 mm, out of range for age determination. There is no pole detected. No cardiac activity is detected. There is no subchorionic hemorrhage identified. The uterus measures 9.3 x 5.4 x 6.3 cm. There is no uterine mass. CERVIX: Long and closed. No cervical abnormality seen. RIGHT OVARY: Measures 2.7 x 2.7 x 2.5 cm. No mass. Normal flow. LEFT OVARY: Measures 2.3 x 1.5 x 2.0 cm. No mass. Normal flow. FREE FLUID: None. OTHER FINDINGS: None. IMPRESSION: Probable early intrauterine gestational sac, out of range for determination of age. Followup with transvaginal ultrasound and serial beta HCG is advised.
[2016-11-26 13:02] VITALS: BP 119/72; PULSE 82; TEMP 98.7
== END 2016-11-26 13:00 | disposition home or self-care (01) ==
LOC: ED 09:55
DX: O26.891 Other specified pregnancy related conditions, first trimester (principal); Z3A.00 Weeks of gestation of pregnancy not specified

== ENCOUNTER 2017-01-18 16:52 | Emergency (ER) | payer MEDICAID ==
[2017-01-18 16:55] VITALS: BMI 44.4
[2017-01-18 16:59] VITALS: TEMP 98.2
[2017-01-18] MEDS ORDERED: Sodium Chloride 0.9% 1,000 ML IV STA (17:21)
[2017-01-18 17:33] LABS: URINE BILIRUBIN NEGATIVE (NEGATIVE); URINE BLOOD TRACE-INTACT (NEGATIVE); URINE GLUCOSE (UA) NEGATIVE (NEGATIVE); URINE KETONE NEGATIVE (NEGATIVE); URINE LEUKOCYTE ESTERASE TRACE Leu/uL (NEGATIVE); URINE PROTEIN NEGATIVE mg/dL (<30 mg/dL); URINE UROBILINOGEN 0.2 E.U./dL (<1 E.U./dL)
[2017-01-18 17:35] LABS: URINE APPEARANCE SL CLOUDY (CLEAR); URINE COLOR YELLOW (YELLOW)
[2017-01-18 17:42] LABS: URINE BACTERIA TRACE (NEG); URINE RBC NEGATIVE /hpf (0-2)
--- NOTE | 2017-01-18 18:08 | ED PDOC ---
Arrival/HPI - General Historian: Patient <Efrain Rousseau - Last Filed: 01/18/17 20:30> <LynTessa Sherry - Last Filed: 01/18/17 20:47> - General Chief Complaint: GI Problem Time Seen by Provider: 01/18/17 17:20 - History of Present Illness Narrative History of Present Illness (Text): 01/18/17 17:57 This is a 36 year old female A2 with Past medical history ruptured ovarian cyst, asthma, cholelithiasis s/p cholecystectomy who presents with complaint of 4 days of watery diarrhea. Patient has had 10 total bouts of yellow watery stools since 4 days ago. Patient has had poor appetite during this time because every time she eats, she experiences the need to move her bowels. Patient has also had two episodes of vomiting yesterday colored yellow and clear in consistency. Patient denies abdominal pain but complains of chills, dizziness, lightheadedness, dry mouth. Patient denied recent travel and when asked about sick contacts, said that her son this morning started experiencing yellow watery diarrhea. Patient took her temperature yesterday and it was 100.3. Per patient, she has been experiencing intermittent bouts of diarrhea since her surgery about 4 months ago. Patient is currently about 14 weeks citing LMP in August 2016. Patient denies dysuria, vaginal discharge or bleeding. Patient has not felt the baby move, but at an valuation consultant office visit about 2 weeks ago was told that this was normal. Patient's next appointment with her valuation consultant is tomorrow where they were also planning on doing a repeat ultrasound. PMD: [place] valuation consultant: Dr. Chaidez PMHx: rutpured ovarian cyst, asthma, cholelithiasis PSHx: Laparascopic cholecystecomy 09/02/16 Social: Denies tobacco, etoh, or illicit drug use. Family Hx: Mom:HTN Allergies: NKDA 01/18/17 18:46 01/18/17 20:31 (Efrain Rousseau) Past Medical History - Travel History Have you recently traveled outside [place] w/in the past 3 mons?: No - Infectious Disease Hx of Infectious Diseases: None - Tetanus Immunization Tetanus Immunization: Unknown - Past Medical History Past Medical History: No Previous - Cardiac Hx Cardiac Disorders: No - Pulmonary Hx Asthma: Yes - Neurological Hx Neurological Disorder: No - HEENT Hx HEENT Disorder: No - Renal Hx Renal Disorder: No - Endocrine/Metabolic Hx Endocrine Disorders: No - Hematological/Oncological Hx Blood Transfusions: No Hx Blood Transfusion Reaction: No - Integumentary Hx Dermatological Disorder: No - Musculoskeletal/Rheumatological Hx Musculoskeletal Disorders: No Hx Falls: No - Gastrointestinal Hx Gall Bladder Disease: Yes (gallstones) - Genitourinary/Gynecological Other/Comment: Ovarian cyst - Psychiatric Hx Psychophysiologic Disorder: No Hx Anxiety: No Hx Bipolar Disorder: No Hx Depression: No Hx Emotional Abuse: No Hx Hallucinations: No Hx Panic Disorder: No Hx Post Traumatic Stress Disorder: No Hx Psychosis: No Hx Physical Abuse: No Hx Schizophrenia: No Hx Sexual Abuse: No Hx Substance Use: No - Past Surgical History Past Surgical History: No Previous - Surgical History Hx Cholecystectomy: Yes - Anesthesia Hx Anesthesia: Yes Hx Anesthesia Reactions: No Hx Malignant Hyperthermia: No - Suicidal Assessment Feels Threatened In Home Enviroment: No <Efrain Rousseau - Last Filed: 01/18/17 20:30> Family/Social History Family/Social History: Hypertension (mother) Smoking Status: Never Smoked Hx Alcohol Use: No Hx Substance Use: No Hx Substance Use Treatment: No <Efrain Rousseau - Last Filed: 01/18/17 20:30> Allergies/Home Meds <Efrain Rousseau - Last Filed: 01/18/17 20:30> <Tessa Nicholson - Last Filed: 01/18/17 20:47> Allergies/Adverse Reactions: Allergies No Known Allergies Allergy (Verified 06/29/16 08:38) Review of Systems - Review of Systems Constitutional: Other (chills) Eyes: Normal ENT: Normal Respiratory: Normal Cardiovascular: Normal Gastrointestinal: Diarrhea, Vomiting. absent: Abdominal Pain, Constipation, Hematochezia, Hematemesis Genitourinary Female: Normal Musculoskeletal: Normal Skin: Normal Neurological: Headache, Dizziness Endocrine: Normal Hemo/Lymphatic: Normal Psychiatric: Normal <Efrain Rousseau - Last Filed: 01/18/17 20:30> Physical Exam Vital Signs Reviewed: Yes Temperature: Afebrile Blood Pressure: Normal Pulse: Regular Respiratory Rate: Normal Appearance: Positive for: Well-Appearing Mental Status: Positive for: Alert and Oriented X 3 - Systems Exam Head: Present: Atraumatic, Normocephalic Pupils: Present: PERRL Extroacular Muscles: Present: EOMI Conjunctiva: Present: Normal Mouth: Present: Moist Mucous Membranes Respiratory/Chest: Present: Clear to Auscultation, Good Air Exchange Cardiovascular: Present: Regular Rate and Rhythm, Normal S1, S2 Abdomen: No: Tenderness, Distention, Normal Bowel Sounds (Hypoactive bowel sounds) Back: No: CVA Tenderness Upper Extremity: Present: Normal Inspection, NORMAL PULSES Lower Extremity: Present: Normal Inspection, NORMAL PULSES. No: Edema, CALF TENDERNESS Neurological: Present: GCS=15, CN II-XII Intact, Speech Normal Skin: Present: Warm, Dry, Normal Color Psychiatric: Present: Alert, Oriented x 3 <Efrain Rousseau - Last Filed: 01/18/17 20:30> Medical Decision Making <Efrain Rousseau - Last Filed: 01/18/17 20:30> <Tessa Nicholson - Last Filed: 01/18/17 20:47> ED Course and Treatment: 01/18/17 18:18 CBC, CMP, Lipase, Mag, Phos, Urinalysis, NS 1L bolus, Pelvic U/S (Efrain Rousseau) Patient seen by resident and then evaluated by me. Patient complaining of diarrhea. Denies abdominal pain, vomiting, vaginal bleeding or vaginal discharge. Patient takes vitamins and has dulser follow-up tomorrow. Abdomen soft NT/ND 01/18/17 20:25 Uterus: Measures 13.4 x 7.8 x 8.5 cm. Single intrauterine gestation identified. pole is seen. Estimated gestational age is 12 weeks, 2 days, based on the crown rump length. Estimated delivery date is 07/31/2017. heart motion visualized, at 159 beats per minute. The early placenta appearance anterior in location, and its inferior tip appears low lying, located less than 2 cm from the internal cervical os. Note that the anatomy and amniotic fluid volume cannot be evaluated at this early gestational age. Cervix is normal in length, measuring 3.8 cm transvaginally, and appears closed. Right ovary: Could not be visualized. Left ovary: Could not be visualized. Cul de sac: None is available. IMPRESSION: 12 week, 2 day intrauterine with heart motion. Suspect a low-lying placenta. Short term ultrasound followup is recommended, as this may resolve with advancing gestational age. Ovaries could not be visualized. Labs grossly normal. UA shows leukocytes. Patient feels better after IVF and has ob follow-up tomorrow. She reports that she wants to go home. 01/18/17 20:47 (Tessa Nicholson) - Lab Interpretations Lab Results: 01/18/17 18:00 01/18/17 19:40 Lab Results 01/18/17 19:40: Sodium 137, Potassium 3.6, Chloride 103, Carbon Dioxide 24, Anion Gap 14, BUN 5 L, Creatinine 0.6, Est GFR ( Amer) > 60, Est GFR (Non -Af Amer) > 60, Random Glucose 79, Calcium 9.2, Phosphorus 3.6, Magnesium 1.9, Total Bilirubin 0.3, AST 25, ALT 40, Alkaline Phosphatase 77, Total Protein 7.2 , Albumin 4.0, Globulin 3.2, Albumin/Globulin Ratio 1.3, Lipase 59 01/18/17 18:00: WBC 10.0, RBC 4.41, Hgb 12.1, Hct 36.5, MCV 82.8, MCH 27.4, MCHC 33.2, RDW 15.0 H, Plt Count 259, MPV 9.5, Gran % 71.6 H, Lymph % (Auto) 21.3 L, [place] % (Auto) 6.3 H, Eos % (Auto) 0.6 L, Baso % (Auto) 0.2, Gran # 7.12 H, Lymph # 2.1, [place] # 0.6, Eos # 0.1, Baso # 0.02 01/18/17 17:20: Urine Color Yellow, Urine Appearance Sl cloudy, Urine pH 6.0, Ur Specific [place] 1.015, Urine Protein Negative, Urine Glucose (UA) Negative, Urine Ketones Negative, Urine Blood Trace-intact H, Urine Nitrate Negative, Urine Bilirubin Negative, Urine Urobilinogen 0.2, Ur Leukocyte Esterase Trace H , Urine RBC Negative, Urine WBC 1 - 3, Ur Epithelial Cells 1 - 3, Urine Bacteria Trace - RAD Interpretation Radiology Orders: 01/18/17 17:20 OB TRANSVAGINAL [US] Routine - Medication Orders Current Medication Orders: Discontinued Medications Sodium Chloride (Sodium Chloride 0.9%) 1,000 mls @ 999 mls/hr IV .Q1H1M STA Stop: 01/18/17 18:21 Last Admin: 01/18/17 17:45 Dose: 999 mls/hr Nitrofurantoin Macrocrystals (Macrobid) 100 mg PO STAT STA Stop: 01/18/17 20:25 Potassium Chloride (K-Dur 20 Meq Er Tab) 20 meq PO STAT STA Stop: 01/18/17 20:32 Disposition/Present on Arrival - Present on Arrival History of DVT/PE: No History of Uncontrolled Diabetes: No Urinary Catheter: No History of Decub. Ulcer: No History Surgical Site Infection Following: None <Efrain Rousseau - Last Filed: 01/18/17 20:30> - Present on Arrival Any Indicators Present on Arrival: No - Disposition Have Diagnosis and Disposition been Completed?: Yes Disposition Time: 20:28 Patient Plan: Discharge <Tessa Nicholson - Last Filed: 01/18/17 20:47> - Disposition Diagnosis: UTI in Disposition: HOME/ ROUTINE Patient Problems: Current Active Problems Problem Status Onset UTI in Acute Condition: GOOD Discharge Instructions (ExitCare): Urinary Tract Infection in (ED) Additional Instructions: Take full course of antibiotics. Return to ED if condition worsens. Follow-up with your LOGGER omorrow as scheduled. U/s here shows low lying placenta- make sure you get follow-up) Prescriptions: Cephalexin [Keflex] 500 mg PO BID #14 capsule Referrals: Johanny Harris MD [Primary Care Provider] - Follow up with primary Forms: [employer] (Lithuanian)
[2017-01-18 18:35] LABS: BASO # 0.02 K/mm3 (0.0-2.0); BASO % 0.2 % (0.0-3.0); EOS # 0.1 (0.0-0.7); EOS % 0.6 % (1.5-5.0); GRAN # 7.12 (1.4-6.5); GRAN % 71.6 % (50.0-68.0); HEMATOCRIT 36.5 % (36.0-48.0); LYMPH # 2.1 (1.2-3.4); LYMPH % 21.3 % (22.0-35.0); MEAN CELL VOLUME 82.8 fl (80.0-105.0); MEAN CORPUSCULAR HEMOGLOBIN 27.4 pg (25.0-35.0); MEAN CORPUSCULAR HGB CONC 33.2 g/dl (31.0-37.0); MEAN PLATELET VOLUME 9.5 fl (7.0-11.0); MONO # 0.6 (0.1-0.6); MONO % 6.3 % (1.0-6.0)
[2017-01-18 20:17] LABS: ALB/GLOB RATIO 1.3 (1.1-1.8); ALKALINE PHOSPHATASE 77 U/L (38-133); ALT/SGPT 40 U/L (7-56); AST/SGOT 25 U/L (15-39); BILIRUBIN,TOTAL 0.3 mg/dL (0.2-1.3); BLOOD UREA NITROGEN 5 mg/dL (7-21); CALCIUM 9.2 mg/dL (8.4-10.5); CARBON DIOXIDE 24 mmol/L (21-33); CHLORIDE 103 mmol/L (98-107); GFR AFRICAN-AMERICAN > 60; GLUCOSE,RANDOM 79 mg/dL (70-110); LIPASE 59 U/L (23-300); MAGNESIUM 1.9 mg/dL (1.7-2.2); PHOSPHOROUS 3.6 mg/dL (2.5-4.5); POTASSIUM 3.6 mmol/L (3.6-5.0); SODIUM 137 mmol/L (132-148); TOTAL PROTEIN 7.2 g/dL (5.8-8.3)
--- NOTE | 2017-01-18 20:23 | US ---
EXAM: US First Trimester, Transabdominal US , Transvaginal EXAM DATE/TIME: 01/18/2017 5:20 PM CLINICAL HISTORY: 36 years old, female; Pain; complicated by abdominal or pelvic pain; Lower; First trimester; Gestational age or lmp: 12 weeks 2day; ; Additional info: , dizziness TECHNIQUE: Real-time transabdominal and transvaginal obstetrical ultrasound of the maternal pelvis and a first trimester with image documentation. Transvaginal imaging was used for better evaluation of the fetus and adnexa. COMPARISON: Prior ultrasound of 11/26/2016 FINDINGS: Uterus: Measures 13.4 x 7.8 x 8.5 cm. Single intrauterine gestation identified. pole is seen. Estimated gestational age is 12 weeks, 2 days, based on the crown rump length. Estimated delivery date is 07/31/2017. heart motion visualized, at 159 beats per minute. The early placenta appearance anterior in location, and its inferior tip appears low lying, located less than 2 cm from the internal cervical os. Note that the anatomy and amniotic fluid volume cannot be evaluated at this early gestational age. Cervix is normal in length, measuring 3.8 cm transvaginally, and appears closed. Right ovary: Could not be visualized. Left ovary: Could not be visualized. Cul de sac: None is available. IMPRESSION: 12 week, 2 day intrauterine with heart motion. Suspect a low-lying placenta. Short term ultrasound followup is recommended, as this may resolve with advancing gestational age. Ovaries could not be visualized. See above for remaining findings.
[2017-01-18] MEDS ORDERED: Potassium Chloride 20 mEq ER Tab PO STA (20:31)
[2017-01-18 20:40] VITALS: BP 116/80; PULSE 75; RESP 17; O2SAT 98
== END 2017-01-18 21:02 | disposition home or self-care (01) ==
LOC: ED 16:52
DX: O23.41 Unspecified infection of urinary tract in pregnancy, first trimester (principal); Z3A.12 12 weeks gestation of pregnancy
CPT/HCPCS: 76817; 80053; 81001; 83690; 83735; 84100; 85025; 87086; 96360; 99285; J7040

== ENCOUNTER 2017-02-03 09:15 | Emergency (ER) | payer MEDICAID ==
[2017-02-03 09:15] VITALS: BMI 44.4
[2017-02-03 09:28] VITALS: TEMP 98.3
--- NOTE | 2017-02-03 09:30 | ED PDOC ---
Arrival/HPI - General Chief Complaint: ENT Problem Time Seen by Provider: 02/03/17 09:29 Historian: Patient - History of Present Illness Narrative History of Present Illness (Text): 02/03/17 09:29 36 y/o female, pmh including UTI, approx. 13 weeks , c/o sorethroat/ nasal congestion x 2 days. Pt. stated that she has sorethroat associated with the congestion and stuffiness, feeling fatigue and tired, no night sweat, no nausea/vomiting/diarrhea, no pelvic or abdominal pain, no numbness or tingling, no palpitation, no other medical or psychological complaints. Past Medical History - Provider Review Nursing Documentation Reviewed: Yes - Infectious Disease Hx of Infectious Diseases: None - Tetanus Immunization Tetanus Immunization: Unknown - Past Medical History Past Medical History: No Previous - Cardiac Hx Cardiac Disorders: No - Pulmonary Hx Asthma: Yes (Seasonal) - Neurological Hx Neurological Disorder: No - HEENT Hx HEENT Disorder: No - Renal Hx Renal Disorder: No - Endocrine/Metabolic Hx Endocrine Disorders: No - Hematological/Oncological Hx Blood Transfusions: No Hx Blood Transfusion Reaction: No - Integumentary Hx Dermatological Disorder: No - Musculoskeletal/Rheumatological Hx Musculoskeletal Disorders: No Hx Falls: No - Gastrointestinal Hx Gall Bladder Disease: Yes (gallstones) - Genitourinary/Gynecological Other/Comment: Ovarian cyst - Psychiatric Hx Psychophysiologic Disorder: No Hx Anxiety: No Hx Bipolar Disorder: No Hx Depression: No Hx Emotional Abuse: No Hx Hallucinations: No Hx Panic Disorder: No Hx Post Traumatic Stress Disorder: No Hx Psychosis: No Hx Physical Abuse: No Hx Schizophrenia: No Hx Sexual Abuse: No Hx Substance Use: No - Past Surgical History Past Surgical History: No Previous - Surgical History Hx Cholecystectomy: Yes - Anesthesia Hx Anesthesia: Yes Hx Anesthesia Reactions: No Hx Malignant Hyperthermia: No - Suicidal Assessment Feels Threatened In Home Enviroment: No Family/Social History - Physician Review Nursing Documentation Reviewed: Yes Family/Social History: Unknown Family HX Smoking Status: Never Smoked Hx Alcohol Use: No Hx Substance Use: No Hx Substance Use Treatment: No Allergies/Home Meds Allergies/Adverse Reactions: Allergies No Known Allergies Allergy (Verified 02/03/17 09:28) Review of Systems - Review of Systems Constitutional: Fatigue. absent: Fevers Eyes: absent: Vision Changes ENT: Sore Throat, Rhinorrhea, Sinus Congestion. absent: Hearing Changes, Voice Changes Respiratory: absent: SOB Cardiovascular: absent: Chest Pain Gastrointestinal: absent: Abdominal Pain, Nausea, Vomiting Genitourinary Female: absent: Dysuria, Frequency, Hematuria, Urine Output Changes, Vaginal Bleeding, Vaginal Discharge, Other Musculoskeletal: Myalgias. absent: Arthralgias, Back Pain Skin: absent: Rash, Pruritis Neurological: absent: Headache Physical Exam Vital Signs Reviewed: Yes Vital Signs Temp Pulse Resp BP Pulse Ox 02/03/17 10:15 94 H 18 100 02/03/17 09:22 98.3 F 113 H 16 99/62 L 98 Temperature: Afebrile Blood Pressure: Hypertensive Pulse: Regular Respiratory Rate: Normal Appearance: Positive for: Well-Appearing, Non-Toxic Pain Distress: Mild Mental Status: Positive for: Alert and Oriented X 3 - Systems Exam Head: Present: Atraumatic, Normocephalic, Other (+ttp on the rt. maxillary sinus region) Pupils: Present: PERRL Extroacular Muscles: Present: EOMI Conjunctiva: Present: Normal Ears: Present: NORMAL TM, Normal Canal. No: Erythema Mouth: Present: Moist Mucous Membranes Pharnyx: No: ERYTHEMA, TONSILS ENLARGED, Peritonsilar Swelling, Uvular Deviation Neck: Present: Normal Range of Motion, Trachea Midline. No: Meningeal Signs, MIDLINE TENDERNESS, Lymphadenopathy Respiratory/Chest: Present: Clear to Auscultation, Good Air Exchange. No: Respiratory Distress, Accessory Muscle Use, Wheezes, Decreased Breath Sounds, Rales, Retracting, Rhonchi, Tachypneic, Tender to Palpation, Other Cardiovascular: Present: Regular Rate and Rhythm, Normal S1, S2. No: Murmurs Abdomen: Present: Normal Bowel Sounds. No: Tenderness, Distention, Peritoneal Signs, Rebound, Guarding Genitourinary/Pelvic Exam: Present: Other (pt. deferred) Back: Present: Normal Inspection Upper Extremity: Present: Normal Inspection. No: Cyanosis, Edema Lower Extremity: Present: Normal Inspection. No: Edema Neurological: Present: GCS=15, CN II-XII Intact, Speech Normal Skin: Present: Warm, Dry, Normal Color. No: Rashes Psychiatric: Present: Alert, Oriented x 3, Normal Insight, Normal Concentration Medical Decision Making ED Course and Treatment: 02/03/17 09:53 -labs/ua -rapid strep -tylenol and IVF -Observe and reassess 02/03/17 10:29 -Based on the [facility] Criteria, there is no indication for oral antibiotics for the throat complaint for the patient. -rapid strept negative -UA show mild leuko with epithelial cell -Labs are non-significant. -Discharge home with augmetin, zyrtec, tylenol, stay hydrated, bed rest, follow up with your own pmd and ENT/Obgyn within 2 days, return to the ER for any new or worsening signs or symptoms. - Lab Interpretations Lab Results: 02/03/17 10:11 02/03/17 10:11 Lab Results 02/03/17 10:11: WBC 10.5, RBC 4.39, Hgb 12.1, Hct 36.7, MCV 83.6, MCH 27.6, MCHC 33.0, RDW 14.8 H, Plt Count 335, MPV 9.2, Gran % 84.3 H, Lymph % (Auto) 9.5 L, [place] % (Auto) 5.4, Eos % (Auto) 0.7 L, Baso % (Auto) 0.1, Gran # 8.83 H, Lymph # 1.0 L, Canadian # 0.6, Eos # 0.1, Baso # 0.01 02/03/17 10:11: Sodium 134, Potassium 3.9, Chloride 103, Carbon Dioxide 23, Anion Gap 12, BUN 5 L, Creatinine 0.5, Est GFR ( Amer) > 60, Est GFR (Non -Af Amer) > 60, Random Glucose 89, Calcium 9.3, Total Bilirubin 0.4, AST 27, ALT 35, Alkaline Phosphatase 84, Total Protein 7.6, Albumin 4.0, Globulin 3.5, Albumin/Globulin Ratio 1.1 02/03/17 09:37: Grp A Beta Strep Ag Negative 02/03/17 09:37: Urine Color Yellow, Urine Appearance Turbid, Urine pH 6.0, Ur Specific [place] 1.025, Urine Protein 100 H, Urine Glucose (UA) Negative, Urine Ketones Trace H, Urine Blood Negative, Urine Nitrate Negative, Urine Bilirubin Negative, Urine Urobilinogen 0.2, Ur Leukocyte Esterase Trace H, Urine RBC Negative, Urine WBC 0 - 2, Ur Epithelial Cells Many, Urine Bacteria Few Interpretation: Abnormal lab values (mild leuk on UA) - Medication Orders Current Medication Orders: Sodium Chloride (Sodium Chloride 0.9%) 1,000 mls @ 999 mls/hr IV .Q1H1M STA Stop: 02/03/17 10:50 Last Admin: 02/03/17 10:00 Dose: 999 mls/hr Discontinued Medications Acetaminophen (Tylenol 325mg Tab) 650 mg PO STAT STA Stop: 02/03/17 09:51 Last Admin: 02/03/17 10:02 Dose: 650 mg - PA / [employer] / Resident Statement CHARLENE has reviewed & agrees with the documentation as recorded. Disposition/Present on Arrival - Present on Arrival Any Indicators Present on Arrival: No History of DVT/PE: No History of Uncontrolled Diabetes: No Urinary Catheter: No History of Decub. Ulcer: No History Surgical Site Infection Following: None - Disposition Have Diagnosis and Disposition been Completed?: Yes Diagnosis: Sinusitis, URI, acute Disposition: HOME/ ROUTINE Disposition Time: 10:27 Patient Plan: Discharge Patient Problems: Current Active Problems Problem Status Onset Sinusitis Acute URI, acute Acute Condition: IMPROVED Additional Instructions: Discharge home with augmentin, zyrtec, take tylenol as needed, stay hydrated, bed rest, follow up with your own pmd and ENT within 2 days, return to the ER for any new or worsening signs or symptoms. Prescriptions: Amoxicillin/Clavulanate [Augmentin 875 MG-125 MG] 1 tab PO BID #14 tab Cetirizine HCl [Zyrtec Allergy] 10 mg PO DAILY #10 sgl Referrals: Mauricio Guerin DO [Staff Provider] - Follow up with primary Ilan Nieto MD [Staff Provider] - Follow up with primary Forms: [email or web address] (Yemeni), WORK NOTE
[2017-02-03] MEDS ORDERED: Sodium Chloride 0.9% 1,000 ML IV STA (09:50)
[2017-02-03 09:55] LABS: URINE BILIRUBIN NEGATIVE (NEGATIVE); URINE BLOOD NEGATIVE (NEGATIVE); URINE GLUCOSE (UA) NEGATIVE (NEGATIVE); URINE KETONE TRACE mg/dL (NEGATIVE); URINE LEUKOCYTE ESTERASE TRACE Leu/uL (NEGATIVE); URINE PROTEIN 100 mg/dL (<30 mg/dL); URINE UROBILINOGEN 0.2 E.U./dL (<1 E.U./dL)
[2017-02-03 09:56] LABS: URINE APPEARANCE TURBID (CLEAR); URINE COLOR YELLOW (YELLOW)
[2017-02-03 10:02] LABS: URINE EPITHELIAL CELLS MANY /hpf (0-5); URINE RBC NEGATIVE /hpf (0-2); URINE WBC 0 - 2 /hpf (0-6)
[2017-02-03 10:03] LABS: URINE BACTERIA FEW (NEG)
[2017-02-03 10:15] VITALS: RESP 18; O2SAT 100
[2017-02-03 10:18] LABS: BASO # 0.01 K/mm3 (0.0-2.0); BASO % 0.1 % (0.0-3.0); EOS # 0.1 (0.0-0.7); EOS % 0.7 % (1.5-5.0); GRAN # 8.83 (1.4-6.5); GRAN % 84.3 % (50.0-68.0); HEMATOCRIT 36.7 % (36.0-48.0); LYMPH % 9.5 % (22.0-35.0); MEAN CELL VOLUME 83.6 fl (80.0-105.0); MEAN CORPUSCULAR HEMOGLOBIN 27.6 pg (25.0-35.0); MEAN PLATELET VOLUME 9.2 fl (7.0-11.0); MONO # 0.6 (0.1-0.6); MONO % 5.4 % (1.0-6.0); RED CELL DISTRIBUTION WIDTH 14.8 % (11.5-14.5); WHITE BLOOD COUNT 10.5 10^3/ul (4.5-11.0)
[2017-02-03 10:26] LABS: ALB/GLOB RATIO 1.1 (1.1-1.8); ALKALINE PHOSPHATASE 84 U/L (38-126); ALT/SGPT 35 U/L (7-56); AST/SGOT 27 U/L (14-36); BILIRUBIN,TOTAL 0.4 mg/dL (0.2-1.3); BLOOD UREA NITROGEN 5 mg/dL (7-21); CALCIUM 9.3 mg/dL (8.4-10.5); CARBON DIOXIDE 23 mmol/L (21-33); CHLORIDE 103 mmol/L (98-107); GFR AFRICAN-AMERICAN > 60; GLUCOSE,RANDOM 89 mg/dL (70-110); POTASSIUM 3.9 mmol/L (3.6-5.0); SODIUM 134 mmol/L (132-148); TOTAL PROTEIN 7.6 g/dL (5.8-8.3)
[2017-02-03 11:03] VITALS: BP 110/64; PULSE 86
== END 2017-02-03 11:05 | disposition home or self-care (01) ==
LOC: ED 09:15
DX: J01.90 Acute sinusitis, unspecified (principal); O26.891 Other specified pregnancy related conditions, first trimester; Z3A.00 Weeks of gestation of pregnancy not specified
CPT/HCPCS: 80053; 81001; 85025; 87070; 87086; 87430; 99284; J7040

== ENCOUNTER 2017-09-19 08:05 | Emergency (ER) | payer MEDICAID ==
[2017-09-19 08:05] VITALS: BMI 44.4
[2017-09-19 08:24] VITALS: BP 137/93; PULSE 98; RESP 18; TEMP 97.9; O2SAT 99
[2017-09-19] MEDS ORDERED: Penicillin G Benzathine 1.2 Mill Unit/2 ml Syr IM STA (08:55)
--- NOTE | 2017-09-19 09:56 | ED PDOC ---
Arrival/HPI - General Chief Complaint: ENT Problem Time Seen by Provider: 09/19/17 08:22 Historian: Patient - History of Present Illness Narrative History of Present Illness (Text): 09/19/17 09:53 A 37 year old female, whose past medical history includes strep throat and seasonal asthma, presents to the emergency department for sore throat that began 2 days ago. The patient states that it is painful for her to swallow, but she is still able to swallow. She also notes a stuffy nose, left ear ache, fever , chills, and body aches. PND: [place] Time/Duration: < week (2 days ) Symptom Onset: Sudden Symptom Course: Unchanged Quality: Aching Activities at Onset: Light Context: Home Past Medical History - Provider Review Nursing Documentation Reviewed: Yes - Infectious Disease Hx of Infectious Diseases: None - Tetanus Immunization Tetanus Immunization: Unknown - Past Medical History Past Medical History: No Previous - Cardiac Hx Cardiac Disorders: No - Pulmonary Hx Asthma: Yes (Seasonal) - Neurological Hx Neurological Disorder: No - HEENT Hx HEENT Disorder: No - Renal Hx Renal Disorder: No - Endocrine/Metabolic Hx Endocrine Disorders: No - Hematological/Oncological Hx Blood Transfusions: No Hx Blood Transfusion Reaction: No - Integumentary Hx Dermatological Disorder: No - Musculoskeletal/Rheumatological Hx Musculoskeletal Disorders: No Hx Falls: No - Gastrointestinal Hx Gall Bladder Disease: Yes (gallstones) - Genitourinary/Gynecological Other/Comment: Ovarian cyst - Psychiatric Hx Psychophysiologic Disorder: No Hx Anxiety: No Hx Bipolar Disorder: No Hx Depression: No Hx Emotional Abuse: No Hx Hallucinations: No Hx Panic Disorder: No Hx Post Traumatic Stress Disorder: No Hx Psychosis: No Hx Physical Abuse: No Hx Schizophrenia: No Hx Sexual Abuse: No Hx Substance Use: No - Past Surgical History Past Surgical History: No Previous - Surgical History Hx Cholecystectomy: Yes - Anesthesia Hx Anesthesia: Yes Hx Anesthesia Reactions: No Hx Malignant Hyperthermia: No - Suicidal Assessment Feels Threatened In Home Enviroment: No Family/Social History - Physician Review Nursing Documentation Reviewed: Yes Family/Social History: No Known Family HX Smoking Status: Never Smoked Hx Alcohol Use: No Hx Substance Use: No Hx Substance Use Treatment: No Allergies/Home Meds Allergies/Adverse Reactions: Allergies No Known Allergies Allergy (Verified 09/19/17 08:24) Review of Systems - Physician Review All systems were reviewed & negative as marked: Yes - Review of Systems Constitutional: Fevers, Other (chills/bodyaches) ENT: Sore Throat, Sinus Congestion Respiratory: Cough, Sputum Gastrointestinal: absent: Diarrhea, Nausea, Vomiting Physical Exam Vital Signs Reviewed: Yes Vital Signs Temp Pulse Resp BP Pulse Ox 09/19/17 08:22 97.9 F 98 H 18 137/93 H 99 Temperature: Afebrile Blood Pressure: Hypertensive Pulse: Tachycardic Appearance: Positive for: Well-Appearing, Non-Toxic, Comfortable Pain Distress: None Mental Status: Positive for: Alert and Oriented X 3 - Systems Exam Head: Present: Atraumatic, Normocephalic Pupils: Present: PERRL Extroacular Muscles: Present: EOMI Conjunctiva: Present: Normal Ears: Present: Normal, NORMAL TM Mouth: Present: Moist Mucous Membranes Pharnyx: Present: ERYTHEMA (mild), EXUDATE (mild), Other (UV midline ) Neck: Present: Normal Range of Motion Respiratory/Chest: Present: Clear to Auscultation, Good Air Exchange. No: Respiratory Distress, Accessory Muscle Use Cardiovascular: Present: Regular Rate and Rhythm, Normal S1, S2. No: Murmurs Abdomen: No: Tenderness, Distention, Peritoneal Signs Back: Present: Normal Inspection Upper Extremity: Present: Normal Inspection. No: Cyanosis, Edema Lower Extremity: Present: Normal Inspection. No: Edema Neurological: Present: GCS=15, CN II-XII Intact, Speech Normal Skin: Present: Warm, Dry, Normal Color. No: Rashes Psychiatric: Present: Alert, Oriented x 3, Normal Insight, Normal Concentration Medical Decision Making ED Course and Treatment: 09/19/17 09:57 Impression: A 37 year old female with sore throat, fever, body aches, and sinus congestion. Differential Diagnosis included but are not limited to: Strep throat Plan: -- Motrin, Bicillin -- Reassess and disposition Progress Notes: - Medication Orders Current Medication Orders: Discontinued Medications Ibuprofen (Motrin Tab) 600 mg PO STAT STA Stop: 09/19/17 08:56 Last Admin: 09/19/17 09:23 Dose: 600 mg MAR Pain/Vitals Document 09/19/17 09:23 [facility] (Rec: 09/19/17 09:24 [id number] [id number]) Sleep Is patient sleeping during reassessment? No Presence of Pain Presence of Pain Yes Pain Scale Used Pain Scale Used Numeric Location Pain Location Body Site Throat Description Constant Intensity 5 Penicillin G Benzathine (Bicillin L-A Inj) 1,200,000 units IM STAT STA PRN Reason: Protocol Stop: 09/19/17 08:56 Last Admin: 09/19/17 09:24 Dose: 1,200,000 units IM Administration Charges Document 09/19/17 09:24 [facility] (Rec: 09/19/17 09:24 EWO [id number]) Injection Site MAR Injection Site Left Vastus Lateralis Charges for Administration # of IM Administrations 1 - Scribe Statement The provider has reviewed the documentation as recorded by the Scribe Pilar Godfrey Provider Scribe Attestation: All medical record entries made by the Scribe were at my direction and personally dictated by me. I have reviewed the chart and agree that the record accurately reflects my personal performance of the history, physical exam, medical decision making, and the department course for this patient. I have also personally directed, reviewed, and agree with the discharge instructions and disposition. Disposition/Present on Arrival - Present on Arrival Any Indicators Present on Arrival: No History of DVT/PE: No History of Uncontrolled Diabetes: No Urinary Catheter: No History of Decub. Ulcer: No History Surgical Site Infection Following: None - Disposition Have Diagnosis and Disposition been Completed?: Yes Diagnosis: Pharyngitis Disposition: HOME/ ROUTINE Disposition Time: 09:42 Patient Plan: Discharge Condition: IMPROVED Discharge Instructions (ExitCare): Strep Throat (DC) Additional Instructions: Ms Sandra, thank you for letting us take care of you today. Your provider was Dr. Morgan. You were treated for Pharyngitis. The emergency medical care you received today was directed at your acute symptoms. If you were prescribed any medication, please fill it and take as directed. It may take several days for your symptoms to resolve. Return to the Emergency Department if your symptoms worsen, do not improve, or if you have any other problems. Please contact your doctor or call one of the physicians/clinics you have been referred to that are listed on the Patient Visit Information form that is included in your discharge packet. Bring any paperwork you were given at discharge with you along with any medications you are taking to your follow up visit. Our treatment cannot replace ongoing medical care by a primary care provider (PCP) outside of the emergency department. Thank you for allowing the [facility] team to be part of your care today. If you had an X-Ray or CT scan: A Radiologist will review the ED reading if any change in treatment is needed we will contact you. If you had a blood, urine, or wound culture: It will take several days for the results, if any change in treatment is needed we will contact you. If you had an STI test: It will take 48 hours for the results. Please call after 1 week if you have not heard back. Prescriptions: Ibuprofen [Motrin] 600 mg PO Q6 PRN #30 tab PRN Reason: Pain, Moderate (4-7) Referrals: [facility] Celia Req, [Family Provider] - Follow up with primary Forms: [employer] (Finnish), WORK NOTE
== END 2017-09-19 09:42 | disposition home or self-care (01) ==
LOC: ED 08:05
DX: J02.9 Acute pharyngitis, unspecified (principal)
CPT/HCPCS: 96372; 99282; J0561

== ENCOUNTER 2018-01-08 01:46 | Emergency (ER) | payer MEDICAID ==
[2018-01-08 01:53] VITALS: BMI 44.9
[2018-01-08] MEDS ORDERED: Sodium Chloride 0.9% 1,000 ML IV STA (02:08)
[2018-01-08 02:33] LABS: BASO # 0.02 K/mm3 (0.0-2.0); BASO % 0.2 % (0.0-3.0); EOS # 0.2 (0.0-0.7); EOS % 1.8 % (1.5-5.0); GRAN # 7.75 (1.4-6.5); HEMOGLOBIN 11.2 g/dL (12.0-16.0); LYMPH # 2.5 (1.2-3.4); LYMPH % 22.2 % (22.0-35.0); MEAN CELL VOLUME 80.9 fl (80.0-105.0); MEAN CORPUSCULAR HGB CONC 32.2 g/dl (31.0-37.0); MEAN PLATELET VOLUME 9.3 fl (7.0-11.0); MONO # 0.6 (0.1-0.6); MONO % 5.8 % (1.0-6.0); RBC 4.3 10^6/uL (3.5-6.1); RED CELL DISTRIBUTION WIDTH 14.8 % (11.5-14.5); WHITE BLOOD COUNT 11.1 10^3/ul (4.5-11.0)
--- NOTE | 2018-01-08 02:46 | ED PDOC ---
Arrival/HPI - General Chief Complaint: ENT Problem Time Seen by Provider: 01/08/18 01:48 Historian: Patient - History of Present Illness Narrative History of Present Illness (Text): 01/08/18 01:50 37 y/o F w/ h/o strep throat and seasonal asthma presenting to the ED for persistent sore throat that began 2 days ago after recent sick contact exposure with her son. Patient reports sinus congestion & pressure, global headache( gradual in onset resolved w/ sleep & OTC meds). She and feels as if there is a palpable lump on left side of her throat. Patient reports her son recently being treated with antibiotics for similar infection. She notes she has difficulty swallowing fluids & reports taking two 600mg tablets of Motrin 4 hours prior to arrival, with no resolution of symptoms. Patient denies any fevers, chills, cough, nasal discharge, ear pain, recent oral/dental procedures , chest pain, shortness of breath, abdominal pain, nausea, vomiting, diarrhea, back pain, urinary symptoms, dizziness, or any other complaint. Time/Duration: > week (2 days ago) Symptom Onset: Sudden Symptom Course: Worsening Quality: Burning Severity Level: Moderate Activities at Onset: Light, Eating Past Medical History - Provider Review Nursing Documentation Reviewed: Yes - Travel History Have you recently traveled outside [place] w/in the past 3 mons?: No - Infectious Disease Hx of Infectious Diseases: None - Tetanus Immunization Tetanus Immunization: Unknown - Past Medical History Past Medical History: No Previous - Cardiac Hx Cardiac Disorders: No - Pulmonary Hx Asthma: Yes (Seasonal) - Neurological Hx Neurological Disorder: No - HEENT Hx HEENT Disorder: No - Renal Hx Renal Disorder: No - Endocrine/Metabolic Hx Endocrine Disorders: No - Hematological/Oncological Hx Blood Transfusions: No Hx Blood Transfusion Reaction: No - Integumentary Hx Dermatological Disorder: No - Musculoskeletal/Rheumatological Hx Musculoskeletal Disorders: No Hx Falls: No - Gastrointestinal Hx Gall Bladder Disease: Yes (gallstones) - Genitourinary/Gynecological Other/Comment: Ovarian cyst - Psychiatric Hx Psychophysiologic Disorder: No Hx Anxiety: No Hx Bipolar Disorder: No Hx Depression: No Hx Emotional Abuse: No Hx Hallucinations: No Hx Panic Disorder: No Hx Post Traumatic Stress Disorder: No Hx Psychosis: No Hx Physical Abuse: No Hx Schizophrenia: No Hx Sexual Abuse: No Hx Substance Use: No - Past Surgical History Past Surgical History: No Previous - Surgical History Hx Cholecystectomy: Yes - Anesthesia Hx Anesthesia: Yes Hx Anesthesia Reactions: No Hx Malignant Hyperthermia: No - Suicidal Assessment Feels Threatened In Home Enviroment: No Family/Social History - Physician Review Nursing Documentation Reviewed: Yes Family/Social History: No Known Family HX Smoking Status: Never Smoked Hx Alcohol Use: No Hx Substance Use: No Hx Substance Use Treatment: No Allergies/Home Meds Allergies/Adverse Reactions: Allergies No Known Allergies Allergy (Verified 01/08/18 01:55) Home Medications: Home Meds Medication Instructions Recorded Confirmed No Known Home Med 01/08/18 01/08/18 Review of Systems - Physician Review All systems were reviewed & negative as marked: Yes - Review of Systems Constitutional: Normal. absent: Fevers, Night Sweats Eyes: Normal ENT: Sore Throat, Sinus Congestion, Other (denies otalgia). absent: Normal, Rhinorrhea Respiratory: Normal. absent: SOB, Cough Cardiovascular: Normal. absent: Chest Pain Gastrointestinal: Normal. absent: Abdominal Pain, Diarrhea, Nausea, Vomiting Genitourinary Female: Normal. absent: Urine Output Changes Musculoskeletal: Normal. absent: Back Pain Skin: Normal. absent: Rash, Skin Lesions Neurological: Headache. absent: Normal, Dizziness Endocrine: Normal Hemo/Lymphatic: Normal Psychiatric: Normal Physical Exam Vital Signs Reviewed: Yes Vital Signs Temp Pulse Resp BP Pulse Ox 01/08/18 02:57 98.3 F 98 H 18 127/85 100 01/08/18 02:00 98.2 F 100 H 17 133/90 99 Temperature: Afebrile Blood Pressure: Normal Pulse: Tachycardic Respiratory Rate: Normal Appearance: Positive for: Well-Appearing, Non-Toxic Pain Distress: None Mental Status: Positive for: Alert and Oriented X 3 - Systems Exam Head: Present: Atraumatic, Normocephalic Pupils: Present: PERRL Extroacular Muscles: Present: EOMI Conjunctiva: Present: Normal Mouth: Present: Moist Mucous Membranes Pharnyx: Present: ERYTHEMA, EXUDATE, Peritonsilar Swelling, Other (Tonsillar exudates present b/l ). No: Uvular Deviation, Muffled/Hoarse Voice, Strider, Soft Palate/Uvular Edema Neck: Present: Normal Range of Motion Respiratory/Chest: Present: Clear to Auscultation, Good Air Exchange. No: Respiratory Distress, Accessory Muscle Use Cardiovascular: Present: Regular Rate and Rhythm, Normal S1, S2. No: Murmurs Abdomen: No: Tenderness, Distention, Peritoneal Signs Back: Present: Normal Inspection Upper Extremity: Present: Normal Inspection. No: Cyanosis, Edema Lower Extremity: Present: Normal Inspection. No: Edema Neurological: Present: GCS=15, CN II-XII Intact, Speech Normal Skin: Present: Warm, Dry, Normal Color. No: Rashes Lymphatic: Present: Cervical Adenopathy (palpable anterior cervical lymph node on L side of neck) Psychiatric: Present: Alert, Oriented x 3, Normal Insight, Normal Concentration Medical Decision Making ED Course and Treatment: 01/08/18 01:50 Impression: 37 year old female presents to the Emergency department complaining of a sore throat that began 2 days ago after recent sick contact exposure to her son. Differential Diagnoses Include But is not Limited To: Strep Pharyngitis Peritonsilar abscess Tonsillitis Yassine's Angina Plan: -- Labs -- Viscous Lidocaine -- Reglan -- IV fluids -- POC Urine Test -- Rapid strep group A antigen -- Reassess and disposition Prior Visits: Notes and results from previous visits were reviewed. Patient was last seen in the emergency department on 09/19/17 for sore throat that began 2 days prior to visit. Patient was discharged home with instructions for care and directed to follow up with PMD. Progress Notes: 01/08/18 03:05 Labs reviewed with leukocytosis noted. Patient updated on findings and offered antibiotic treatment, but refuses stating she has a family emergency to attend to and cannot stay for additional medical intervention. She is advised to return to the ED for continued treatment later on. Patient acknowledges instructions and demonstrates understanding. AMA papers given and signed. Leaving Against Medical Advice (AMA): The patient is choosing to leave against medical advice due to emergency. I have personally explained to the patient that choosing to do so may result in permanent bodily harm or . I have discussed at great length that without further evaluation and monitoring there may be unforeseen circumstances and/or deterioration causing permanent bodily harm or as a result of their choice. The patient is alert, oriented, and shows the mental capacity to make clear decisions regarding the patients health care at this time. The patient continues to wish to leave against medical advice. In light of the patients decision to leave against medical advice, follow-up has been arranged and the patient is aware of the importance to following up as instructed. The patient has been advised that they should return to the emergency room immediately if they change their mind at any time, or if their condition begins to change or worsen in any way. - Lab Interpretations Microbiology Results: Microbiology Results 01/08/18 02:25 Throat Group A Strep Throat Culture - Final NO BETA STREP GROUP A ISOLATED. Lab Results: 01/08/18 02:25 01/08/18 02:25 Lab Results 01/08/18 02:25: Grp A Beta Strep Ag Negative 01/08/18 02:25: WBC 11.1 H, RBC 4.30, Hgb 11.2 L, Hct 34.8 L, MCV 80.9, MCH 26.0 , MCHC 32.2, RDW 14.8 H, Plt Count 341, MPV 9.3, Gran % 70.0 H, Lymph % (Auto) 22.2, [place] % (Auto) 5.8, Eos % (Auto) 1.8, Baso % (Auto) 0.2, Gran # 7.75 H, Lymph # (Auto) 2.5, [place] # (Auto) 0.6, Eos # (Auto) 0.2, Baso # (Auto) 0.02 01/08/18 02:25: Sodium 142, Potassium 3.8, Chloride 105, Carbon Dioxide 25, Anion Gap 16, BUN 14, Creatinine 0.6 L, Est GFR ( Amer) > 60, Est GFR ( Non-Af Amer) > 60, Random Glucose 95, Calcium 9.0, Total Bilirubin 0.6, AST 26, ALT 37, Alkaline Phosphatase 104, Total Protein 8.2, Albumin 4.4, Globulin 3.8, Albumin/Globulin Ratio 1.1 - Medication Orders Current Medication Orders: Discontinued Medications Sodium Chloride (Sodium Chloride 0.9%) 1,000 mls @ 999 mls/hr IV .Q1H1M STA Stop: 01/08/18 03:08 Last Admin: 01/08/18 02:39 Dose: 999 mls/hr eMAR Start Stop Document 01/08/18 02:39 AD (Rec: 01/08/18 02:39 AD [id number]) Intravenous Solution Start Date 01/08/18 Start Time 02:39 Lidocaine HCl (Lidocaine 2% Viscous) 15 ml PO ONCE ONE Stop: 01/08/18 02:12 Last Admin: 01/08/18 02:39 Dose: 15 ml Metoclopramide HCl (Reglan) 10 mg IVP STAT STA Stop: 01/08/18 02:29 Last Admin: 01/08/18 02:39 Dose: 10 mg IVP Administration Document 01/08/18 02:39 AD (Rec: 01/08/18 02:39 AD [id number]) Charges for Administration # of IVP Administrations 1 - Scribe Statement The provider has reviewed the documentation as recorded by the Scribe Batsheva Watkins All medical record entries made by the Scribe were at my direction and personally dictated by me. I have reviewed the chart and agree that the record accurately reflects my personal performance of the history, physical exam, medical decision making, and the department course for this patient. I have also personally directed, reviewed, and agree with the discharge instructions and disposition. Disposition/Present on Arrival - Present on Arrival Any Indicators Present on Arrival: No History of DVT/PE: No History of Uncontrolled Diabetes: No Urinary Catheter: No History of Decub. Ulcer: No History Surgical Site Infection Following: None - Disposition Have Diagnosis and Disposition been Completed?: Yes Diagnosis: Tonsillitis Disposition: AGAINST MEDICAL ADVICE Disposition Time: 03:05 Condition: STABLE Referrals: Uriah Trujillo MD [Primary Care Provider] - Follow up with primary Forms: [employer] (Yoruba)
[2018-01-08 02:52] LABS: ALB/GLOB RATIO 1.1 (1.1-1.8); ALBUMIN 4.4 g/dL (3.0-4.8); ALT/SGPT 37 U/L (7-56); AST/SGOT 26 U/L (14-36); BLOOD UREA NITROGEN 14 mg/dL (7-21); GFR AFRICAN-AMERICAN > 60; GFR NON-AFRICAN AMERICAN > 60
[2018-01-08 03:33] VITALS: BP 127/85; PULSE 98; RESP 18; TEMP 98.3; O2SAT 100
== END 2018-01-08 02:57 | disposition left against medical advice (07) ==
LOC: ED 01:46
DX: J03.90 Acute tonsillitis, unspecified (principal)
CPT/HCPCS: 80053; 85025; 87070; 87430; 96374; 99284; J2765; J7030